=== PATIENT | male | born 1960 | race Two or more races ===

== ENCOUNTER 2016-06-02 12:31 | Emergency (ER) | payer OTHER ==
[~2016-06-02] VITALS: Ht 172.7 cm; Wt 118.4 kg
[~2016-06-02 12:31] MED LIST: ASPI-231 PO; ATE50T PO; CHOL400T PO; CLON0.2T PO; CLOP75TA28 PO; FURO40TA4 PO; INSUINJ37 SUBCUT; LEVO50TA7 PO; LIRA18IN2 SUBCUT; OXYC10TA44 PO; POT20T PO
[2016-06-02] MEDS ORDERED: cloNIDine HCL 0.1 MG TAB ONE (23:13)
[2016-06-02] MEDS ORDERED: cloNIDine HCL 0.1 MG TAB PO ONE (23:30)
[2016-06-03] MEDS ORDERED: PROMETHAZINE HCL 25 MG/ML 1ML IM ONE (01:45)
[2016-06-03] MEDS ORDERED: HYDROmorphone HCL 2 MG/ML VL IM ONE ×2 (01:45→06:00)
[2016-06-03 08:34] VITALS: BP 141/96
== END 2016-06-03 10:14 | disposition home or self-care (01) ==
LOC: ER 12:33
DX: M47.896 Other spondylosis, lumbar region (principal); M54.16 Radiculopathy, lumbar region; R15.9 Full incontinence of feces; E66.9 Obesity, unspecified; Z68.39 Body mass index [BMI] 39.0-39.9, adult; F41.9 Anxiety disorder, unspecified; M19.90 Unspecified osteoarthritis, unspecified site; K21.9 Gastro-esophageal reflux disease without esophagitis; E07.9 Disorder of thyroid, unspecified; I13.0 Hypertensive heart and chronic kidney disease with heart failure and stage 1 through stage 4 chronic kidney disease, or unspecified chronic kidney disease; N18.9 Chronic kidney disease, unspecified; I50.9 Heart failure, unspecified; E11.22 Type 2 diabetes mellitus with diabetic chronic kidney disease; Z79.899 Other long term (current) drug therapy; Z79.4 Long term (current) use of insulin; Z91.013 Allergy to seafood
CPT/HCPCS: 96372; 99284; J1170; J2550

== ENCOUNTER 2016-06-24 12:05 | Emergency (ER) | payer OTHER ==
[~2016-06-24] VITALS: Ht 172.7 cm; Wt 118.8 kg
[2016-06-24] MEDS ORDERED: PROMETHAZINE HCL 25 MG/ML 1ML IM ONE (15:30)
[2016-06-24] MEDS ORDERED: HYDROmorphone HCL 2 MG/ML VL IM ONE (15:30)
[2016-06-24 16:10] VITALS: BP 148/84
== END 2016-06-24 16:29 | disposition home or self-care (01) ==
LOC: ER 12:12
DX: G89.29 Other chronic pain (principal); M25.552 Pain in left hip; M79.1 Myalgia; M54.5 Low back pain; I13.0 Hypertensive heart and chronic kidney disease with heart failure and stage 1 through stage 4 chronic kidney disease, or unspecified chronic kidney disease; E11.22 Type 2 diabetes mellitus with diabetic chronic kidney disease; N18.9 Chronic kidney disease, unspecified; I50.9 Heart failure, unspecified; K21.9 Gastro-esophageal reflux disease without esophagitis; Z87.11 Personal history of peptic ulcer disease; M19.90 Unspecified osteoarthritis, unspecified site; E07.9 Disorder of thyroid, unspecified; Z79.82 Long term (current) use of aspirin; Z79.4 Long term (current) use of insulin; Z79.899 Other long term (current) drug therapy; Z88.6 Allergy status to analgesic agent; Z91.013 Allergy to seafood; Z91.09 Other allergy status, other than to drugs and biological substances
CPT/HCPCS: 73502; 96372; 99284; J1170; J2550

== ENCOUNTER 2016-07-15 15:18 | Emergency (ER) | payer OTHER ==
[~2016-07-15] VITALS: Ht 172.7 cm; Wt 118.8 kg
[2016-07-16 06:20] VITALS: BP 168/84
[2016-07-16] MEDS ORDERED: PROMETHAZINE HCL 25 MG/ML 1ML IM ONE (06:45)
[2016-07-16] MEDS ORDERED: HYDROmorphone HCL 2 MG/ML VL IM ONE (06:45)
== END 2016-07-16 07:21 | disposition home or self-care (01) ==
LOC: ER 15:23
DX: Z76.0 Encounter for issue of repeat prescription (principal); M54.9 Dorsalgia, unspecified; M25.552 Pain in left hip; M19.90 Unspecified osteoarthritis, unspecified site; K21.9 Gastro-esophageal reflux disease without esophagitis; E11.22 Type 2 diabetes mellitus with diabetic chronic kidney disease; I13.0 Hypertensive heart and chronic kidney disease with heart failure and stage 1 through stage 4 chronic kidney disease, or unspecified chronic kidney disease; N18.9 Chronic kidney disease, unspecified; I50.9 Heart failure, unspecified; Z87.11 Personal history of peptic ulcer disease; G89.4 Chronic pain syndrome; Z79.4 Long term (current) use of insulin; Z79.82 Long term (current) use of aspirin; Z79.899 Other long term (current) drug therapy; Z88.6 Allergy status to analgesic agent; Z91.013 Allergy to seafood
CPT/HCPCS: 96372; 99284; J1170; J2550

== ENCOUNTER 2016-11-18 13:24 | Emergency (ER) | payer OTHER ==
[~2016-11-18] VITALS: Ht 172.7 cm; Wt 114.8 kg
[2016-11-18 13:41] VITALS: BP 205/96
[2016-11-18 14:09] LABS: Basophils # (auto) 0 uL; Basophils % (auto) 0.3 % (0.0-2.0); CONDITION Y; Eosinophils # (auto) 0.3 uL; Eosinophils % (auto) 2.8 % (0.0-7.0); Hematocrit 45.8 % (41.0-53.0); Hemoglobin 15.1 g/dL (13.5-17.5); Lymphocytes # (auto) 1.6 uL; Mean Corpuscular Hemoglobin 28.5 pg (28.0-32.0); Mean Corpuscular Volume 86.5 fL (80.0-100.0); Mean Platelet Volume 8.1 fL (7.4-10.4); Monocytes # (auto) 0.4 uL; Monocytes % (auto) 4.4 % (0.0-12.0); Neutrophils # (auto) 7.2 uL; Neutrophils % (auto) 75.5 % (37.0-80.0); Platelet Count (auto) 291 10^3/uL (140-450); Red Cell Distribution Width 15.3 % (11.6-16.0); White Blood Cell 9.5 10^3/uL (4.4-10.8)
[2016-11-18 14:43] LABS: Albumin 3.1 g/dL (3.4-5.0); BUN/Creatinine Ratio 9.5; Bilirubin, Total 0.3 mg/dL (0.2-1.0); Calcium 8.4 mg/dL (8.5-10.1); Potassium 4.9 mmol/L (3.5-5.1); Total Protein 7.2 g/dL (6.4-8.2)
== END 2016-11-18 16:57 | disposition left against medical advice (07) ==
LOC: ER 13:29
DX: M54.9 Dorsalgia, unspecified (principal); M25.552 Pain in left hip; Z53.21 Procedure and treatment not carried out due to patient leaving prior to being seen by health care provider
CPT/HCPCS: 36415; 80053; 85025

== ENCOUNTER 2016-11-21 15:49 | Emergency (ER) | payer OTHER ==
[~2016-11-21] VITALS: Ht 172.7 cm; Wt 114.8 kg
[2016-11-21] MEDS ORDERED: cloNIDine HCL 0.1 MG TAB ONE (16:17)
[2016-11-21] MEDS ORDERED: cloNIDine HCL 0.1 MG TAB PO ONE (16:30)
[2016-11-21 17:41] VITALS: BP 187/100
[2016-11-21] MEDS ORDERED: PROMETHAZINE HCL 25 MG/ML 1ML IM ONE (21:00)
[2016-11-21] MEDS ORDERED: HYDROmorphone HCL 2 MG/ML VL IM ONE (21:00)
== END 2016-11-21 21:39 | disposition home or self-care (01) ==
LOC: ER 15:49
DX: G89.29 Other chronic pain (principal); M54.5 Low back pain; M25.552 Pain in left hip; I13.0 Hypertensive heart and chronic kidney disease with heart failure and stage 1 through stage 4 chronic kidney disease, or unspecified chronic kidney disease; I50.9 Heart failure, unspecified; N18.9 Chronic kidney disease, unspecified; M19.90 Unspecified osteoarthritis, unspecified site; E11.22 Type 2 diabetes mellitus with diabetic chronic kidney disease; K21.9 Gastro-esophageal reflux disease without esophagitis; Z79.4 Long term (current) use of insulin; Z91.013 Allergy to seafood; Z88.6 Allergy status to analgesic agent
CPT/HCPCS: 96372; 99284; J1170; J2550

== ENCOUNTER 2016-12-05 16:13 | Emergency (ER) | payer OTHER ==
[~2016-12-05] VITALS: Ht 172.7 cm; Wt 114.8 kg
[2016-12-05] MEDS ORDERED: PROMETHAZINE HCL 25 MG/ML 1ML IV ONE ×2 (19:45→22:15)
[2016-12-05] MEDS ORDERED: MORPHINE SULFATE 4 MG/ML SYRG IV ONE (19:45)
[2016-12-05] MEDS ORDERED: SODIUM CHLORIDE 0.9% 500 ML IV ONE (20:27)
[2016-12-05 20:52] LABS: Basophils # (auto) 0 uL; Basophils % (auto) 0.2 % (0.0-2.0); CONDITION Y; Eosinophils # (auto) 0.4 uL; Eosinophils % (auto) 4.8 % (0.0-7.0); Hematocrit 42.8 % (41.0-53.0); Hemoglobin 14.2 g/dL (13.5-17.5); Lymphocytes # (auto) 1.8 uL; Lymphocytes % (auto) 20.9 % (10.0-50.0); Mean Corpuscular Hgb Conc. 33.2 g/dL (32.0-36.0); Mean Corpuscular Volume 87.3 fL (80.0-100.0); Mean Platelet Volume 7.8 fL (7.4-10.4); Monocytes # (auto) 0.5 uL; Monocytes % (auto) 6.3 % (0.0-12.0); Neutrophils # (auto) 5.7 uL; Neutrophils % (auto) 67.8 % (37.0-80.0); Platelet Count (auto) 275 10^3/uL (140-450); Red Cell Distribution Width 16.2 % (11.6-16.0); White Blood Cell 8.4 10^3/uL (4.4-10.8)
[2016-12-05 21:05] LABS: INR 1.01 (0.9-1.15); Partial Thromboplastin Time 26.8 sec (22.64-33.71)
[2016-12-05 21:08] LABS: Albumin 2.8 g/dL (3.4-5.0); BUN/Creatinine Ratio 13.4; Calcium 8.1 mg/dL (8.5-10.1); Potassium 4.6 mmol/L (3.5-5.1)
[2016-12-05 21:11] LABS: Bilirubin, Total 0.2 mg/dL (0.2-1.0); Total Protein 7.1 g/dL (6.4-8.2)
[2016-12-05 21:57] VITALS: BP 134/85
[2016-12-05 22:00] LABS: Urine Bilirubin Negative (Negative); Urine Blood TRACE /uL (Negative); Urine Color Yellow (Yellow); Urine Ketone Negative (Negative); Urine Nitrite Negative (Negative); Urine RBC 2 /hpf (0 - 3); Urine Squamous Epithelial Cell FEW /hpf (<5); Urine Urobilinogen Normal (Negative)
[2016-12-05 22:07] LABS: Urine Glucose 3+ mg/dL (Normal)
[2016-12-05] MEDS ORDERED: HYDROmorphone HCL 2 MG/ML VL IV ONE (22:15)
[2016-12-05] MEDS ORDERED: CLINDAMYCIN 600MG IV 50 ML IV ONE (22:15)
== END 2016-12-05 23:10 | disposition left against medical advice (07) ==
LOC: ER 16:14
DX: M25.552 Pain in left hip (principal); G89.4 Chronic pain syndrome; I50.9 Heart failure, unspecified; I13.0 Hypertensive heart and chronic kidney disease with heart failure and stage 1 through stage 4 chronic kidney disease, or unspecified chronic kidney disease; N18.4 Chronic kidney disease, stage 4 (severe); Z87.11 Personal history of peptic ulcer disease; K21.9 Gastro-esophageal reflux disease without esophagitis; E07.9 Disorder of thyroid, unspecified; M19.90 Unspecified osteoarthritis, unspecified site; Z79.4 Long term (current) use of insulin; Z79.82 Long term (current) use of aspirin; Z91.013 Allergy to seafood; Z91.09 Other allergy status, other than to drugs and biological substances; Z79.899 Other long term (current) drug therapy
CPT/HCPCS: 36415; 73502; 73700; 80053; 81001; 82962; 83735; 85025; 85610; 85652; 85730; 94761; 96361; 96365; 96375; 96376; 99285; J1170; J2270; J2550; J3490; J7040

== ENCOUNTER 2017-07-31 22:06 | Emergency (ER) | payer BC, OTHER ==
[~2017-07-31] VITALS: Ht 172.7 cm; Wt 115.2 kg
[2017-07-31] MEDS ORDERED: cloNIDine HCL 0.1 MG TAB ONE (22:24)
[2017-07-31] MEDS ORDERED: cloNIDine HCL 0.1 MG TAB PO ONE (22:30)
[2017-07-31 23:06] LABS: Basophils # (auto) 0.1 uL; Basophils % (auto) 1.3 % (0.0-2.0); Eosinophils # (auto) 0.2 uL; Eosinophils % (auto) 1.9 % (0.0-7.0); Hematocrit 42.2 % (41.0-53.0); Hemoglobin 14.2 g/dL (13.5-17.5); Lymphocytes # (auto) 1.4 uL; Lymphocytes % (auto) 14.5 % (10.0-50.0); Mean Corpuscular Hemoglobin 29.6 pg (28.0-32.0); Mean Corpuscular Hgb Conc. 33.6 g/dL (32.0-36.0); Mean Corpuscular Volume 88.2 fL (80.0-100.0); Monocytes # (auto) 0.5 uL; Monocytes % (auto) 5.4 % (0.0-12.0); Neutrophils # (auto) 7.3 uL; Neutrophils % (auto) 76.9 % (37.0-80.0); Platelet Count (auto) 238 10^3/uL (140-450); Red Blood Cells 4.79 10^6/uL (4.5-5.90); Red Cell Distribution Width 13.7 % (11.8-14.3); White Blood Cell 9.5 10^3/uL (4.4-10.8)
[2017-07-31 23:18] LABS: Albumin 3.4 g/dL (3.4-5.0); BUN/Creatinine Ratio 14.3; Calcium 8.9 mg/dL (8.5-10.1); Magnesium 2.1 mg/dL (1.6-2.6); Potassium 4.1 mmol/L (3.5-5.1)
[2017-07-31 23:21] LABS: INR 1.01 (0.9-1.15); Partial Thromboplastin Time 27.6 sec (22.64-33.71)
[2017-07-31 23:23] LABS: Bilirubin, Total 0.2 mg/dL (0.2-1.0)
[2017-07-31 23:28] LABS: Urine WBC None Seen /hpf (0 - 3)
[2017-07-31 23:40] LABS: Urine Bacteria FEW /hpf (None Seen); Urine Blood 1+ /uL (Negative); Urine Hyaline Cast FEW /lpf (0 - 2); Urine Mucus FEW (None Seen)
[2017-08-01] MEDS ORDERED: MORPHINE SULFATE 4 MG/ML SYR/VIAL ONE (00:17)
[2017-08-01] MEDS ORDERED: PROMETHAZINE HCL 25 MG/ML 1ML ONE (00:19)
[2017-08-01] MEDS ORDERED: MORPHINE SULFATE 4 MG/ML SYR/VIAL IV ONE (00:45)
[2017-08-01] MEDS ORDERED: SODIUM CHLORIDE 0.9% 1,000 ML IV ONE (00:45)
[2017-08-01] MEDS ORDERED: PROMETHAZINE HCL 25 MG/ML 1ML IV ONE (00:45)
[2017-08-01 02:10] VITALS: BP 162/95
== END 2017-08-01 02:36 | disposition home or self-care (01) ==
LOC: EDBD 22:06 → ER 22:10
DX: K29.70 Gastritis, unspecified, without bleeding (principal); K21.9 Gastro-esophageal reflux disease without esophagitis; I11.0 Hypertensive heart disease with heart failure; I50.9 Heart failure, unspecified; E11.9 Type 2 diabetes mellitus without complications; Z87.11 Personal history of peptic ulcer disease; Z79.4 Long term (current) use of insulin; Z79.82 Long term (current) use of aspirin; Z91.013 Allergy to seafood
CPT/HCPCS: 36415; 71045; 74176; 80053; 81001; 82150; 82962; 83690; 83735; 83880; 84484; 85025; 85610; 85730; 87040; 93005; 96361; 96374; 96375; 99285; J2270; J2550; J7030

== ENCOUNTER 2018-02-23 16:50 | Observation (INO) | payer OTHER ==
[~2018-02-23] VITALS: Ht 172.7 cm; Wt 108.9 kg
[2018-02-23 18:56] LABS: Basophils # (auto) 0 uL; Basophils % (auto) 0.4 % (0.0-2.0); Eosinophils # (auto) 0.1 uL; Hematocrit 35.8 % (41.0-53.0); Hemoglobin 12.1 g/dL (13.5-17.5); Lymphocytes # (auto) 0.9 uL; Lymphocytes % (auto) 10.8 % (10.0-50.0); Mean Corpuscular Hemoglobin 29.9 pg (28.0-32.0); Mean Corpuscular Hgb Conc. 33.7 g/dL (32.0-36.0); Mean Corpuscular Volume 88.6 fL (80.0-100.0); Monocytes # (auto) 0.5 uL; Monocytes % (auto) 5.2 % (0.0-12.0); Neutrophils # (auto) 7.3 uL; Neutrophils % (auto) 82.6 % (37.0-80.0); Nucleated Red Blood Cells % 0.1 %; Platelet Count (auto) 227 10^3/uL (140-450); Red Blood Cells 4.03 10^6/uL (4.5-5.90); Red Cell Distribution Width 15.2 % (11.8-14.3); White Blood Cell 8.8 10^3/uL (4.4-10.8)
[2018-02-23] MEDS ORDERED: PROMETHAZINE HCL 25 MG/ML 1ML IV ONE (19:00)
[2018-02-23] MEDS ORDERED: MORPHINE SULFATE 4 MG/ML SYR/VIAL IV ONE (19:00)
[2018-02-23] MEDS ORDERED: cloNIDine HCL 0.1 MG TAB PO ONE (19:00)
[2018-02-23 19:16] LABS: Potassium 4.7 mmol/L (3.5-5.1)
[2018-02-23 19:20] LABS: Albumin 3.2 g/dL (3.4-5.0); BUN/Creatinine Ratio 12.4; Calcium 8.1 mg/dL (8.5-10.1); Magnesium 2.4 mg/dL (1.6-2.6)
[2018-02-23 19:25] LABS: Bilirubin, Total 0.3 mg/dL (0.2-1.0); Total Protein 8.1 g/dL (6.4-8.2)
[2018-02-23] MEDS ORDERED: PROM25TA5 PO (21:27)
[2018-02-23] MEDS ORDERED: CLOP75TA41 (21:27)
[2018-02-23] MEDS ORDERED: MORP1TAB12 (21:27)
[2018-02-23] MEDS ORDERED: METO25TA62 (21:27)
[2018-02-23] MEDS ORDERED: INSUINJ37 (21:27)
[2018-02-23 22:01] VITALS: BP 100/85
[2018-02-23 22:44] LABS: Urine Amorphous Crystal FEW /hpf (None Seen); Urine Bacteria FEW /hpf (None Seen); Urine Blood 2+ /uL (Negative); Urine Mucus FEW (None Seen); Urine Specific Gravity 1.009 (1.001-1.035); Urine WBC 1 /hpf (0 - 3)
== END 2018-02-23 23:30 | disposition home or self-care (01) | DRG 313 ==
LOC: ER 16:50 → EDBD 16:50 → OVERFLOW 16:51 → ER 23:30
PROVIDERS: ADMIT Emergency Medicine; ATTEND Emergency Medicine
DX: R07.89 Other chest pain (principal); N18.6 End stage renal disease; I13.2 Hypertensive heart and chronic kidney disease with heart failure and with stage 5 chronic kidney disease, or end stage renal disease; K80.20 Calculus of gallbladder without cholecystitis without obstruction; I50.9 Heart failure, unspecified; F41.9 Anxiety disorder, unspecified; E11.22 Type 2 diabetes mellitus with diabetic chronic kidney disease; F32.9 Major depressive disorder, single episode, unspecified; K27.9 Peptic ulcer, site unspecified, unspecified as acute or chronic, without hemorrhage or perforation; D64.9 Anemia, unspecified; M19.90 Unspecified osteoarthritis, unspecified site; K21.9 Gastro-esophageal reflux disease without esophagitis; G89.4 Chronic pain syndrome; E66.01 Morbid (severe) obesity due to excess calories; E07.9 Disorder of thyroid, unspecified; Z88.9 Allergy status to unspecified drugs, medicaments and biological substances; Z88.6 Allergy status to analgesic agent; Z91.013 Allergy to seafood
CPT/HCPCS: 36415; 74176; 80053; 81001; 83735; 84484; 85025; 93005; 96374; 96375; 99285; G0378; J2270; J2550

== ENCOUNTER 2019-08-18 17:21 | Inpatient (IN) | payer MEDICARE, OTHER ==
[~2019-08-18] VITALS: Ht 172.7 cm; Wt 101.6 kg
[~2019-08-18 17:21] MED LIST changes: -ATE50T PO; -CHOL400T PO; -CLON0.2T PO; +DOCU-94 PO; -FURO40TA4 PO; +INSLANTI SC; +INSREGI SC; -INSUINJ37 SUBCUT; -LIRA18IN2 SUBCUT; +MAGN1CAP2 PO; +MORP1TAB12 PO; -OXYC10TA44 PO; +PERCOT GT; -POT20T PO
[2019-08-18 18:48] LABS: Basophils # (auto) 0 10 ^3/uL (0-0.2); Basophils % (auto) 0.5 % (0.0-2.0); Eosinophils # (auto) 0.2 10 ^3/uL (0-0.8); Eosinophils % (auto) 2.8 % (0.0-7.0); Hematocrit 33.5 % (41.0-53.0); Hemoglobin 11.3 g/dL (13.5-17.5); Lymphocytes # (auto) 0.9 10 ^3/uL (0.4-5.4); Lymphocytes % (auto) 11.2 % (10.0-50.0); Mean Corpuscular Hemoglobin 31.2 pg (28.0-32.0); Mean Corpuscular Hgb Conc. 33.8 g/dL (32.0-36.0); Mean Corpuscular Volume 92.4 fL (80.0-100.0); Monocytes # (auto) 0.6 10 ^3/uL (0-1.3); Monocytes % (auto) 7.3 % (0.0-12.0); Neutrophils # (auto) 6.5 10 ^3/uL (1.6-8.6); Neutrophils % (auto) 78.2 % (37.0-80.0); Platelet Count (auto) 230 10^3/uL (140-450); Red Blood Cells 3.63 10^6/uL (4.5-5.90); Red Cell Distribution Width 16.4 % (11.8-14.3); White Blood Cell 8.3 10^3/uL (4.4-10.8)
[2019-08-18 18:58] LABS: Albumin 3.8 g/dL (3.4-5.0); Calcium 9.2 mg/dL (8.5-10.1); Magnesium 2.8 mg/dL (1.6-2.6)
[2019-08-18 19:06] LABS: BUN/Creatinine Ratio 6.3; Bilirubin, Total 0.4 mg/dL (0.2-1.0); INR 1.11 (0.9-1.15); Partial Thromboplastin Time 31.5 sec (23.64-32.05); Total Protein 7.9 g/dL (6.4-8.2)
[2019-08-18] MEDS ORDERED: ONDANSETRON HCL 4 MG/2 ML VIAL IV ONE (19:30)
[2019-08-18] MEDS ORDERED: MORPHINE SULF INJ 2 MG/ML SYRINGE 1ML IV ONE (19:30)
[2019-08-18] MEDS ORDERED: PROMETHAZINE HCL 25 MG/ML 1ML IV ONE (19:45)
[2019-08-18] MEDS ORDERED: NITROGLYCERIN 0.4 MG SL TAB SL PRN (22:30)
[2019-08-18] MEDS ORDERED: HYDROcodone-ACET 5/325MG TAB PO PRN (22:30)
[2019-08-18] MEDS ORDERED: DEXTROSE (50%) 50ML SYRG IV PRN (22:30)
[2019-08-18] MEDS ORDERED: ACETAMINOPHEN 325 MG TAB PO PRN (22:30)
[2019-08-18] MEDS ORDERED: OXYCODONE W/ ACETAMINOPHEN 5/325MG TABLET GT PRN (22:30)
[2019-08-18] MEDS ORDERED: ONDANSETRON HCL 4 MG/2 ML VIAL IV PRN (22:30)
[2019-08-18] MEDS ORDERED: MORPHINE SULF INJ 2 MG/ML SYRINGE 1ML IV PRN (22:30)
[2019-08-18] MEDS ORDERED: DOCUSATE SOD 100 MG CAP PO PRN (22:30)
[2019-08-18] MEDS: MORPHINE SULFATE 4 MG/ML SYR/VIAL IV PRN (23:02)
[2019-08-19] VITALS (8 sets, daily range): BP systolic 122–156; BP diastolic 64–91
[2019-08-19] MEDS: InsuLIN REG 1unit/0.01ml Soln (100units/ml) SC SCH ×7 (00:01→23:43)
[2019-08-19] MEDS: ACCU-CHEK COMFORT CURVE STRIP VI SCH ×7 (03:55→23:44)
[2019-08-19] MEDS: MORPHINE SULFATE 4 MG/ML SYR/VIAL IV PRN ×4 (04:00→16:43)
[2019-08-19 05:23] LABS: Calcium 9.3 mg/dL (8.5-10.1); Potassium 3.8 mmol/L (3.5-5.1)
[2019-08-19 05:28] LABS: BUN/Creatinine Ratio 6.2
[2019-08-19] MEDS: LEVOTHYROXINE SODIUM 50 MCG TAB PO SCH (06:19)
[2019-08-19] MEDS: PANTOPRAZOLE 40 MG TAB PO SCH (09:20)
[2019-08-19] MEDS: DOCUSATE SOD 100 MG CAP PO SCH (09:20)
[2019-08-19] MEDS: ASPirin-EC 81 mg tab PO SCH (09:20)
[2019-08-19] MEDS: CLOPIDOGREL BISULFATE 75 MG TAB PO SCH (09:21)
[2019-08-19] MEDS: MORPHINE SULF 15mg ER tab PO SCH ×2 (09:21→22:00)
[2019-08-19] MEDS ORDERED: FUROSEMIDE 40 MG/4 ML VIAL IV SCH (10:00)
[2019-08-19] MEDS ORDERED: INSULIN LANTUS (GLARGINE) 1 /0.01ml (100units/ml) SC SCH (10:00)
[2019-08-19] MEDS: FUROSEMIDE 100 MG/10ML VIAL IV SCH (11:16)
[2019-08-19] MEDS ORDERED: PROMETHAZINE HCL 25 MG/ML 1ML IV PRN (13:15)
[2019-08-19] MEDS ORDERED: MAGN1CAP2 PO (15:46)
[2019-08-19] MEDS ORDERED: INSLANTI SC (15:46)
[2019-08-19] MEDS ORDERED: LEVO150T10 PO (15:49)
[2019-08-19] MEDS ORDERED: HYDR-4296 PO (15:53)
[2019-08-19] MEDS ORDERED: CARV25TA55 PO (15:54)
[2019-08-19] MEDS ORDERED: FURO40TA4 PO (15:55)
[2019-08-19] MEDS ORDERED: BUSP7.5T4 PO (15:56)
[2019-08-19] MEDS ORDERED: AMLO5TAB15 PO (15:56)
[2019-08-19] MEDS ORDERED: ATOR10TA52 PO (15:57)
[2019-08-19] MEDS ORDERED: FEBU40TA PO (15:57)
[2019-08-19] MEDS ORDERED: INSU100I49 SC (16:02)
[2019-08-19] MEDS: ATORVASTATIN 20 MG TAB PO SCH (18:17)
[2019-08-19] MEDS ORDERED: BUME2TAB5 PO (20:37)
[2019-08-19] MEDS ORDERED: TEMAZEPAM 15 MG CAP PO ONE (20:45)
[2019-08-19] MEDS: MORPHINE SULF INJ 2 MG/ML SYRINGE 1ML IV PRN (20:51)
[2019-08-19] MEDS: INSULIN LANTUS (GLARGINE) 1 /0.01ml (100units/ml) SC SCH (21:32)
[2019-08-19] MEDS: ALBUTEROL SULF 2.5 MG/0.5ML(0.5%) NEB SOLN NEB PRN (22:04)
[2019-08-19] MEDS: IPRATROPIUM BROM 0.5 MG/2.5ML INH SOL NEB PRN (22:05)
[2019-08-19] MEDS ORDERED: FUROSEMIDE 20 MG/2 ML VIAL IV ONE (23:00)
[2019-08-20] MEDS: MORPHINE SULF INJ 2 MG/ML SYRINGE 1ML IV PRN (03:16)
[2019-08-20] MEDS: InsuLIN REG 1unit/0.01ml Soln (100units/ml) SC SCH ×6 (03:46→23:30)
[2019-08-20] MEDS: ACCU-CHEK COMFORT CURVE STRIP VI SCH ×6 (03:47→23:31)
[2019-08-20 05:00] VITALS: BP 135/85
[2019-08-20] MEDS: LEVOTHYROXINE SODIUM 50 MCG TAB PO SCH (06:01)
[2019-08-20] MEDS: INSULIN LANTUS (GLARGINE) 1 /0.01ml (100units/ml) SC SCH ×2 (06:01→21:25)
[2019-08-20 06:27] LABS: Basophils # (auto) 0 10 ^3/uL (0-0.2); Basophils % (auto) 0.6 % (0.0-2.0); Eosinophils # (auto) 0.2 10 ^3/uL (0-0.8); Eosinophils % (auto) 2.5 % (0.0-7.0); Hematocrit 35.4 % (41.0-53.0); Hemoglobin 11.9 g/dL (13.5-17.5); Lymphocytes # (auto) 1.1 10 ^3/uL (0.4-5.4); Lymphocytes % (auto) 13.4 % (10.0-50.0); Mean Corpuscular Hgb Conc. 33.5 g/dL (32.0-36.0); Mean Corpuscular Volume 92.5 fL (80.0-100.0); Monocytes # (auto) 0.6 10 ^3/uL (0-1.3); Monocytes % (auto) 6.9 % (0.0-12.0); Neutrophils # (auto) 6.3 10 ^3/uL (1.6-8.6); Neutrophils % (auto) 76.6 % (37.0-80.0); Platelet Count (auto) 219 10^3/uL (140-450); Red Blood Cells 3.82 10^6/uL (4.5-5.90); Red Cell Distribution Width 15.7 % (11.8-14.3); White Blood Cell 8.2 10^3/uL (4.4-10.8)
[2019-08-20 06:52] LABS: Potassium 4.3 mmol/L (3.5-5.1)
[2019-08-20 07:01] LABS: BUN/Creatinine Ratio 7.1; Calcium 8.9 mg/dL (8.5-10.1)
[2019-08-20] MEDS ORDERED: SODIUM CHL 0.9% 1000 ML BAG XX ONE (08:45)
[2019-08-20 09:00] VITALS: BP 169/93
[2019-08-20] MEDS: MORPHINE SULF 15mg ER tab PO SCH ×2 (10:00→22:00)
[2019-08-20] MEDS: FUROSEMIDE 100 MG/10ML VIAL IV SCH (10:00)
[2019-08-20 13:08] VITALS: BP 151/79
[2019-08-20 17:00] VITALS: BP 156/87
[2019-08-20] MEDS: DOCUSATE SOD 100 MG CAP PO SCH (18:08)
[2019-08-20] MEDS: CLOPIDOGREL BISULFATE 75 MG TAB PO SCH (18:09)
[2019-08-20] MEDS: ASPirin-EC 81 mg tab PO SCH (18:09)
[2019-08-20] MEDS: PANTOPRAZOLE 40 MG TAB PO SCH (18:10)
[2019-08-20] MEDS: ATORVASTATIN 20 MG TAB PO SCH (18:15)
[2019-08-20] MEDS: IPRATROPIUM BROM 0.5 MG/2.5ML INH SOL NEB PRN ×2 (19:18→22:35)
[2019-08-20] MEDS: ALBUTEROL SULF 2.5 MG/0.5ML(0.5%) NEB SOLN NEB PRN ×2 (19:18→22:35)
[2019-08-21] MEDS: MORPHINE SULF INJ 2 MG/ML SYRINGE 1ML IV PRN ×3 (00:32→20:08)
[2019-08-21] MEDS: TEMAZEPAM 15 MG CAP PO PRN ×2 (01:17→22:31)
[2019-08-21] MEDS: InsuLIN REG 1unit/0.01ml Soln (100units/ml) SC SCH ×5 (03:53→20:14)
[2019-08-21] MEDS: ACCU-CHEK COMFORT CURVE STRIP VI SCH ×5 (03:54→20:05)
[2019-08-21 04:47] VITALS: BP 152/76
[2019-08-21] MEDS: LEVOTHYROXINE SODIUM 50 MCG TAB PO SCH (06:08)
[2019-08-21] MEDS: INSULIN LANTUS (GLARGINE) 1 /0.01ml (100units/ml) SC SCH ×2 (06:08→22:30)
[2019-08-21] MEDS ORDERED: SODIUM CHL 0.9% 1000 ML BAG XX ONE (07:00)
[2019-08-21 07:36] LABS: Basophils # (auto) 0.1 10 ^3/uL (0-0.2); Basophils % (auto) 1.2 % (0.0-2.0); Eosinophils # (auto) 0.3 10 ^3/uL (0-0.8); Eosinophils % (auto) 4.2 % (0.0-7.0); Hematocrit 32.5 % (41.0-53.0); Lymphocytes # (auto) 1.1 10 ^3/uL (0.4-5.4); Mean Corpuscular Hemoglobin 31.2 pg (28.0-32.0); Mean Corpuscular Hgb Conc. 33.8 g/dL (32.0-36.0); Mean Corpuscular Volume 92.1 fL (80.0-100.0); Monocytes # (auto) 0.5 10 ^3/uL (0-1.3); Monocytes % (auto) 8.1 % (0.0-12.0); Neutrophils # (auto) 4.5 10 ^3/uL (1.6-8.6); Neutrophils % (auto) 69.5 % (37.0-80.0); Platelet Count (auto) 183 10^3/uL (140-450); Red Blood Cells 3.53 10^6/uL (4.5-5.90); Red Cell Distribution Width 16.1 % (11.8-14.3); White Blood Cell 6.4 10^3/uL (4.4-10.8)
[2019-08-21 07:53] LABS: Calcium 8.2 mg/dL (8.5-10.1); Potassium 3.5 mmol/L (3.5-5.1)
[2019-08-21 07:55] LABS: BUN/Creatinine Ratio 6.1
[2019-08-21 09:08] VITALS: BP 158/86
[2019-08-21] MEDS: MORPHINE SULF 15mg ER tab PO SCH ×2 (10:00→22:00)
[2019-08-21] MEDS: ASPirin-EC 81 mg tab PO SCH (10:01)
[2019-08-21] MEDS: DOCUSATE SOD 100 MG CAP PO SCH (10:01)
[2019-08-21] MEDS: CLOPIDOGREL BISULFATE 75 MG TAB PO SCH (10:02)
[2019-08-21] MEDS: FUROSEMIDE 100 MG/10ML VIAL IV SCH (10:02)
[2019-08-21] MEDS: PANTOPRAZOLE 40 MG TAB PO SCH (10:02)
[2019-08-21] MEDS: IPRATROPIUM BROM 0.5 MG/2.5ML INH SOL NEB PRN ×2 (11:45→19:01)
[2019-08-21] MEDS: ALBUTEROL SULF 2.5 MG/0.5ML(0.5%) NEB SOLN NEB PRN ×2 (11:45→19:01)
[2019-08-21 13:00] VITALS: BP 154/95
[2019-08-21 17:00] VITALS: BP 156/92
[2019-08-21] MEDS: ATORVASTATIN 20 MG TAB PO SCH (18:19)
[2019-08-21 22:00] VITALS: BP 139/75
[2019-08-22] MEDS: ACCU-CHEK COMFORT CURVE STRIP VI SCH ×5 (00:29→17:30)
[2019-08-22 00:58] VITALS: BP 139/75
[2019-08-22] MEDS: MORPHINE SULF INJ 2 MG/ML SYRINGE 1ML IV PRN ×3 (01:18→09:45)
[2019-08-22] MEDS: InsuLIN REG 1unit/0.01ml Soln (100units/ml) SC SCH ×5 (04:00→17:31)
[2019-08-22 05:44] VITALS: BP 127/71
[2019-08-22] MEDS: INSULIN LANTUS (GLARGINE) 1 /0.01ml (100units/ml) SC SCH (06:44)
[2019-08-22] MEDS: LEVOTHYROXINE SODIUM 50 MCG TAB PO SCH (06:47)
[2019-08-22 09:00] VITALS: BP 128/67
[2019-08-22] MEDS: MORPHINE SULF 15mg ER tab PO SCH (09:42)
[2019-08-22] MEDS: FUROSEMIDE 100 MG/10ML VIAL IV SCH (09:44)
[2019-08-22] MEDS: ASPirin-EC 81 mg tab PO SCH (09:45)
[2019-08-22] MEDS: DOCUSATE SOD 100 MG CAP PO SCH (09:45)
[2019-08-22] MEDS: PANTOPRAZOLE 40 MG TAB PO SCH (09:45)
[2019-08-22] MEDS: CLOPIDOGREL BISULFATE 75 MG TAB PO SCH (09:45)
[2019-08-22] MEDS ORDERED: ENOXAPARIN SOD 30 MG/0.3 ML SYRINGE SC SCH ×2 (10:00)
[2019-08-22 13:00] VITALS: BP 150/97
[2019-08-22 16:41] VITALS: BP 128/67
[2019-08-22 16:57] VITALS: BP 181/90
== END 2019-08-22 18:00 | disposition home or self-care (01) | DRG 280 ==
LOC: EDBD 17:21 → ER 17:21 → TELE 17:22 → TELE-WESTW 23:09
PROVIDERS: ADMIT Hospitalist; ATTEND Internal Medicine
PROC: 5A1D70Z Performance of Urinary Filtration, Intermittent, Less than 6 Hours Per Day (ICD-10-PCS; principal; 2019-08-21)
PROC: 5A1D70Z Performance of Urinary Filtration, Intermittent, Less than 6 Hours Per Day (ICD-10-PCS; 2019-08-22)
DX: I13.2 Hypertensive heart and chronic kidney disease with heart failure and with stage 5 chronic kidney disease, or end stage renal disease (principal); I21.A1 Myocardial infarction type 2; I50.43 Acute on chronic combined systolic (congestive) and diastolic (congestive) heart failure; N18.6 End stage renal disease; J96.00 Acute respiratory failure, unspecified whether with hypoxia or hypercapnia; E03.9 Hypothyroidism, unspecified; K21.9 Gastro-esophageal reflux disease without esophagitis; E66.9 Obesity, unspecified; E11.21 Type 2 diabetes mellitus with diabetic nephropathy; I25.10 Atherosclerotic heart disease of native coronary artery without angina pectoris; G89.4 Chronic pain syndrome; J44.9 Chronic obstructive pulmonary disease, unspecified; E78.5 Hyperlipidemia, unspecified; E11.65 Type 2 diabetes mellitus with hyperglycemia; F32.9 Major depressive disorder, single episode, unspecified; F41.9 Anxiety disorder, unspecified; D64.9 Anemia, unspecified; M19.90 Unspecified osteoarthritis, unspecified site; D63.8 Anemia in other chronic diseases classified elsewhere; Z99.2 Dependence on renal dialysis; Z88.8 Allergy status to other drugs, medicaments and biological substances; I25.2 Old myocardial infarction; Z91.013 Allergy to seafood; Z68.34 Body mass index [BMI] 34.0-34.9, adult
CPT/HCPCS: 36415; 36600; 71045; 80048; 80053; 80061; 82805; 82962; 83036; 83735; 83880; 84439; 84443; 84484; 85025; 85610; 85730; 87081; 90935; 93005; 93971; 94640; 96374; 96375; G0378; J1642; J1815

== ENCOUNTER → 2019-09-17 | Emergency (ER) | payer MEDICARE, OTHER ==
[~2019-09-17] VITALS: Ht 172.7 cm; Wt 102.1 kg
[~2019-09-17] MED LIST changes: +AMLO5TAB15 PO; +ATOR10TA52 PO; +BUME2TAB5 PO; +BUSP7.5T4 PO; +CARV25TA55 PO; +FEBU40TA PO; +FURO40TA4 PO; +HYDR-4296 PO; -INSREGI SC; +INSU100I49 SC; +LEVO150T10 PO; -LEVO50TA7 PO; -MORP1TAB12 PO; -PERCOT GT
[2019-09-17 19:40] LABS: Basophils # (auto) 0.1 10 ^3/uL (0-0.2); Basophils % (auto) 0.5 % (0.0-2.0); Eosinophils # (auto) 0.3 10 ^3/uL (0-0.8); Eosinophils % (auto) 2.8 % (0.0-7.0); Hematocrit 39.4 % (41.0-53.0); Lymphocytes # (auto) 0.9 10 ^3/uL (0.4-5.4); Lymphocytes % (auto) 8.8 % (10.0-50.0); Mean Corpuscular Hgb Conc. 32.9 g/dL (32.0-36.0); Mean Corpuscular Volume 91.3 fL (80.0-100.0); Monocytes # (auto) 0.5 10 ^3/uL (0-1.3); Monocytes % (auto) 5.3 % (0.0-12.0); Neutrophils # (auto) 8.1 10 ^3/uL (1.6-8.6); Neutrophils % (auto) 82.6 % (37.0-80.0); Platelet Count (auto) 200 10^3/uL (140-450); Red Blood Cells 4.31 10^6/uL (4.5-5.90); Red Cell Distribution Width 15.7 % (11.8-14.3); White Blood Cell 9.8 10^3/uL (4.4-10.8)
[2019-09-17 19:56] LABS: Albumin 3.7 g/dL (3.4-5.0); Calcium 8.8 mg/dL (8.5-10.1); Potassium 4.4 mmol/L (3.5-5.1)
[2019-09-17 19:59] LABS: BUN/Creatinine Ratio 7.3; Bilirubin, Total 0.4 mg/dL (0.2-1.0); Total Protein 7.5 g/dL (6.4-8.2)
[2019-09-17 22:56] VITALS: BP 163/85
== END | disposition home or self-care (01) ==
LOC: EDBD 18:47 → ER 18:47 → EDUNIT# 18:47
DX: K80.20 Calculus of gallbladder without cholecystitis without obstruction (principal); K21.9 Gastro-esophageal reflux disease without esophagitis; I25.2 Old myocardial infarction; I13.2 Hypertensive heart and chronic kidney disease with heart failure and with stage 5 chronic kidney disease, or end stage renal disease; E11.22 Type 2 diabetes mellitus with diabetic chronic kidney disease; N18.6 End stage renal disease; I50.9 Heart failure, unspecified; Z79.82 Long term (current) use of aspirin; Z79.899 Other long term (current) drug therapy; Z79.4 Long term (current) use of insulin; Z79.01 Long term (current) use of anticoagulants; Z88.8 Allergy status to other drugs, medicaments and biological substances
CPT/HCPCS: 36415; 74176; 80053; 83690; 85025

== ENCOUNTER 2020-02-01 16:28 | Inpatient (IN) | payer MEDICARE, OTHER ==
[~2020-02-01] VITALS: Ht 170.2 cm; Wt 100.6 kg
[2020-02-01 17:55] LABS: Basophils # (auto) 0 10 ^3/uL (0-0.2); Basophils % (auto) 0.5 % (0.0-2.0); Eosinophils # (auto) 0.1 10 ^3/uL (0-0.8); Eosinophils % (auto) 2.3 % (0.0-7.0); Hematocrit 35.4 % (41.0-53.0); Hemoglobin 11.6 g/dL (13.5-17.5); Lymphocytes # (auto) 0.5 10 ^3/uL (0.4-5.4); Lymphocytes % (auto) 9.4 % (10.0-50.0); Mean Corpuscular Hemoglobin 31.4 pg (28.0-32.0); Mean Corpuscular Hgb Conc. 32.8 g/dL (32.0-36.0); Mean Corpuscular Volume 95.8 fL (80.0-100.0); Monocytes # (auto) 0.3 10 ^3/uL (0-1.3); Monocytes % (auto) 6.4 % (0.0-12.0); Neutrophils # (auto) 4.5 10 ^3/uL (1.6-8.6); Neutrophils % (auto) 81.4 % (37.0-80.0); Platelet Count (auto) 182 10^3/uL (140-450); Red Cell Distribution Width 17.6 % (11.8-14.3); White Blood Cell 5.5 10^3/uL (4.4-10.8)
[2020-02-01 18:26] LABS: Albumin 3.4 g/dL (3.4-5.0); Calcium 8.2 mg/dL (8.5-10.1); Potassium 4.2 mmol/L (3.5-5.1)
[2020-02-01 18:31] LABS: Bilirubin, Total 0.5 mg/dL (0.2-1.0); Total Protein 7.5 g/dL (6.4-8.2)
[2020-02-01 19:01] LABS: INR 1.08 (0.9-1.15); Partial Thromboplastin Time 26.5 sec (23.0-31.2)
[2020-02-01] MEDS ORDERED: ONDANSETRON HCL 4 MG/2 ML VIAL IV ONE (19:30)
[2020-02-01] MEDS ORDERED: HYDROmorphone HCL 2 MG/ML VL IV ONE (19:30)
--- NOTE | 2020-02-01 19:30 | NUR ---
Opening Shift Note Assumed care of patient. Patient AOx4. Fall and safety precautions in place. Call light within reach and able to use. No S/S of distress/SOB. Patient's personal wheelchair at bedside. Instructed on POC and to call for assist PRN, patient verbalized understanding and in agreement. Will continue to monitor for changes Q1hr and PRN. Addendum: 02/03/20 at 0000 by LIOR AL RN RN wrong date
[2020-02-01] MEDS ORDERED: PROMETHAZINE HCL 25 MG/ML 1ML IV ONE (21:00)
[2020-02-01 22:00] VITALS: BP 124/79
[2020-02-01] MEDS ORDERED: MORPHINE SULF INJ 2 MG/ML SYRINGE 1ML IV PRN (23:00)
[2020-02-01] MEDS ORDERED: ZOLPIDEM TARTRATE 5 MG TAB PO PRN (23:00)
[2020-02-01] MEDS ORDERED: NITROGLYCERIN 0.4 MG SL TAB SL PRN (23:00)
[2020-02-01] MEDS ORDERED: ACETAMINOPHEN 325 MG TAB PO PRN (23:00)
[2020-02-01] MEDS ORDERED: DEXTROSE (50%) 50ML SYRG IV PRN (23:00)
[2020-02-01] MEDS ORDERED: ONDANSETRON HCL 4 MG/2 ML VIAL IV PRN (23:00)
[2020-02-01] MEDS ORDERED: METOPROLOL TARTRATE 1MG/1ML-5ML VIAL IV PRN (23:00)
--- NOTE | 2020-02-01 23:55 | NUR ---
Telemetry admit from ER LANEY CARDENAS admitted to Telemetry unit after SBAR received. Patient oriented to primary RN, unit, room, bed, and unit policies regarding patient care and visiting hours. Patient now on continuous telemetry monitoring, tele box #56 and telemetry reading on arrival to unit is 61 BPM. Patient with personal wheelchair, patient weighed by bedscale and encouraged to call if they need something. Fall and safety precautions in place. All questions and concerns addressed, patient verbalized understanding and in agreement. Call light within reach and able to use. Will continue to monitor q1h and prn.
--- NOTE | 2020-02-02 | NUR ---
MED NON-ADMIN PATIENT'S BLOOD SUGAR 143. EDUCATED PATIENT ON INDICATION FOR INSULIN FOR APPROPRIATE BLOOD SUGAR CONTROL. PATIENT REFUSES (SEE EMAR). REINFORCED EDUCATION ON IMPORTANCE OF MAINTAINING BLOOD SUGAR, PATIENT VERBALIZED UNDERSTANDING AND CONTINUES TO REFUSE. WILL CONTINUE TO MONITOR.
--- NOTE | 2020-02-02 00:10 | NUR ---
ON-CALL HOSP PAGED PT C/O 9/ PAIN TO LEFT SHOULDER AND CHRONIC BACK PAIN. PT STATES HE TAKES MORPHINE 25MG PO BID FOR CHRONIC PAIN. PATIENT HAS NO PRN FOR MED OR SEVERE PAIN. ON-CALL HOSP PAGED. AWAITING CALL BACK. WILL CONTINUE TO MONITOR.
--- NOTE | 2020-02-02 00:13 | NUR ---
RECEIVED CALL BACK FROM ON-CALL RECEIVED A CALL BACK FROM ON-CALL HOSP. UPDATED MD ON PATIENT STATUS AND PT COMPLAINT. RECEIVED NEW ORDERS, READ BACK AND VERIFIED (SEE NEW ORDERS). WILL CARRY OUT. WILL CONTINUE TO MONITOR.
[2020-02-02] MEDS: ACCU-CHEK COMFORT CURVE STRIP VI SCH ×7 (00:14→23:40)
[2020-02-02] MEDS ORDERED: HYDROcodone-ACET 5/325MG TAB PO PRN (00:15)
[2020-02-02 00:22] VITALS: BP 123/77
[2020-02-02] MEDS: MORPHINE SULFATE 4 MG/ML SYR/VIAL IV PRN ×6 (00:25→22:36)
[2020-02-02] MEDS ORDERED: PNEUMOCOCCAL VACC POLYS 25 MCG/0.5 ML VIAL IM ONE (03:15)
--- NOTE | 2020-02-02 03:45 | NUR ---
[facility] SWAB SENT TO LAB
[2020-02-02] MEDS: InsuLIN REG 1unit/0.01ml Soln (100units/ml) SC SCH ×7 (04:31→23:40)
[2020-02-02 05:00] VITALS: BP 109/59
[2020-02-02 05:26] LABS: Basophils # (auto) 0 10 ^3/uL (0-0.2); Basophils % (auto) 0.8 % (0.0-2.0); Eosinophils # (auto) 0.2 10 ^3/uL (0-0.8); Eosinophils % (auto) 3.5 % (0.0-7.0); Hematocrit 35.9 % (41.0-53.0); Hemoglobin 11.3 g/dL (13.5-17.5); Lymphocytes # (auto) 0.9 10 ^3/uL (0.4-5.4); Lymphocytes % (auto) 16.4 % (10.0-50.0); Mean Corpuscular Hemoglobin 30.4 pg (28.0-32.0); Mean Corpuscular Hgb Conc. 31.3 g/dL (32.0-36.0); Mean Corpuscular Volume 97.1 fL (80.0-100.0); Monocytes # (auto) 0.4 10 ^3/uL (0-1.3); Neutrophils # (auto) 4.1 10 ^3/uL (1.6-8.6); Neutrophils % (auto) 72.3 % (37.0-80.0); Nucleated Red Blood Cells % 0.2 %; Platelet Count (auto) 166 10^3/uL (140-450); Red Cell Distribution Width 18.1 % (11.8-14.3); White Blood Cell 5.6 10^3/uL (4.4-10.8)
[2020-02-02 05:40] LABS: Potassium 4.1 mmol/L (3.5-5.1)
[2020-02-02 05:46] LABS: BUN/Creatinine Ratio 6.6
[2020-02-02 06:00] LABS: Magnesium 4.2 mg/dL (1.6-2.6)
--- NOTE | 2020-02-02 06:10 | NUR ---
CRITICAL - ON-CALL HOSP PAGED RECEIVED CALL FROM LAB REGARDING PATIENT'S CRITICALLY HIGH LABORATORY LEVEL OF MAGNESIUM 4.2. ON-CALL HOSP PAGED AT THIS TIME. AWAITING CALL BACK. WILL CONTINUE TO MONITOR.
--- NOTE | 2020-02-02 06:45 | NUR ---
RECEIVED CALL BACK FROM ON-CALL HOSP RECEIVED A CALL BACK FROM ON-CALL HOSP. UPDATED MD ON PATIENT STATUS AND CRITICAL MAGNESIUM OF 4.2. NO NEW ORDERS RECEIVED. MD STATED TO ENSURE PATIENT HAS CONSULT WITH NEPHRO FOR DIALYSIS. MD INFORMED THAT PATIENT HAS NEPHRO CONSULT IN PLACE. DOUBLE VERIFIED WITH BOOK SALESMAN THAT NEPHRO CONSULT WAS CALLED IN. WILL CONTINUE TO MONITOR.
[2020-02-02 09:00] VITALS: BP 134/77
[2020-02-02] MEDS: DOCUSATE SOD 100 MG CAP PO SCH (09:29)
[2020-02-02] MEDS: ENOXAPARIN SOD 100 MG/1 ML SYRINGE SC SCH ×2 (09:30→22:35)
[2020-02-02] MEDS: CLOPIDOGREL BISULFATE 75 MG TAB PO SCH (09:30)
[2020-02-02] MEDS: CARVEDILOL 3.125 MG TAB PO SCH ×2 (09:30→22:00)
[2020-02-02] MEDS ORDERED: FUROSEMIDE 40 MG/4 ML VIAL IV SCH (10:00)
[2020-02-02] MEDS: PROMETHAZINE HCL 25 MG/ML 1ML IV PRN ×2 (11:00→18:25)
[2020-02-02] MEDS ORDERED: SODIUM CHL 0.9% 1000 ML BAG XX ONE (12:30)
--- NOTE | 2020-02-02 12:30 | NUR ---
wide area network systems administrator at bed side
[2020-02-02 13:00] VITALS: BP 123/72
--- NOTE | 2020-02-02 15:01 | NUR ---
MD Thomson at bed side. New orders received. Will carry out.
[2020-02-02 17:00] VITALS: BP 137/92
[2020-02-02] MEDS: FUROSEMIDE 40 MG/4 ML VIAL IV SCH (17:37)
--- NOTE | 2020-02-02 19:30 | NUR ---
Opening Shift Note Assumed care of patient. Patient AOx4. Fall and safety precautions in place. Call light within reach and able to use. No S/S of distress/SOB. Patient's personal wheelchair at bedside. Instructed on POC and to call for assist PRN, patient verbalized understanding and in agreement. Will continue to monitor for changes Q1hr and PRN.
[2020-02-02 22:00] VITALS: BP 119/67
[2020-02-02] MEDS: ATORVASTATIN 20 MG TAB PO SCH (22:35)
--- NOTE | 2020-02-02 23:56 | NUR ---
REPORT GIVEN ASSIGNMENT CHANGED PER COURT OF APPEALS JUDGE ORDER. REPORT GIVEN TO ELIZABETH HOBSON.
--- NOTE | 2020-02-03 00:35 | NUR ---
Assumed care of pt Pt is laying in bed with even and unlabored respirations. No SOB/ distress or pain noted. Will continue to monitor Q1hr and PRN.
[2020-02-03] MEDS: MORPHINE SULFATE 4 MG/ML SYR/VIAL IV PRN ×5 (03:02→22:07)
[2020-02-03] MEDS: InsuLIN REG 1unit/0.01ml Soln (100units/ml) SC SCH ×6 (04:00→23:52)
[2020-02-03] MEDS: ACCU-CHEK COMFORT CURVE STRIP VI SCH ×6 (04:16→23:52)
[2020-02-03] MEDS: PROMETHAZINE HCL 25 MG/ML 1ML IV PRN ×3 (04:28→20:01)
[2020-02-03 05:00] VITALS: BP 142/85
[2020-02-03] MEDS: FUROSEMIDE 40 MG/4 ML VIAL IV SCH ×2 (05:30→17:41)
[2020-02-03] MEDS: LORazepam 0.5 MG TAB PO PRN (05:44)
--- NOTE | 2020-02-03 07:30 | NUR ---
Opening Shift Note: Assumed care of patient, awake and alert. No S/S of distress/SOB or pain. Bed in lowest locked position, side rails up x 2, call light within reach. Patient instructed on POC and to call for assist PRN, will continue to monitor for changes Q1hr and PRN
[2020-02-03 08:23] LABS: Basophils # (auto) 0 10 ^3/uL (0-0.2); Basophils % (auto) 0.8 % (0.0-2.0); Eosinophils # (auto) 0.2 10 ^3/uL (0-0.8); Eosinophils % (auto) 3.9 % (0.0-7.0); Hematocrit 38.3 % (41.0-53.0); Hemoglobin 12.1 g/dL (13.5-17.5); Lymphocytes # (auto) 0.8 10 ^3/uL (0.4-5.4); Lymphocytes % (auto) 15.6 % (10.0-50.0); Mean Corpuscular Hemoglobin 30.2 pg (28.0-32.0); Mean Corpuscular Hgb Conc. 31.5 g/dL (32.0-36.0); Mean Corpuscular Volume 95.7 fL (80.0-100.0); Monocytes # (auto) 0.4 10 ^3/uL (0-1.3); Monocytes % (auto) 8.1 % (0.0-12.0); Neutrophils # (auto) 3.8 10 ^3/uL (1.6-8.6); Neutrophils % (auto) 71.6 % (37.0-80.0); Nucleated Red Blood Cells % 0.1 %; Platelet Count (auto) 136 10^3/uL (140-450); Red Cell Distribution Width 17.9 % (11.8-14.3); White Blood Cell 5.3 10^3/uL (4.4-10.8)
[2020-02-03 08:29] LABS: Anion Gap 11 (5-15); Blood Urea Nitrogen 38 mg/dL (7-18); Calcium 8.3 mg/dL (8.5-10.1); Carbon Dioxide 24 mmol/L (21-32); Chloride 96 mmol/L (98-107); Glucose 115 mg/dL (74-106); Potassium 4.1 mmol/L (3.5-5.1); Sodium 131 mmol/L (136-145)
[2020-02-03 08:31] LABS: GFR African American 11 mL/min; GFR Non-African American 9 mL/min
[2020-02-03 08:36] LABS: BUN/Creatinine Ratio 5.8
--- NOTE | 2020-02-03 08:39 | NUR ---
ACCU CHECK DONE ORDERED,BLOOD SUGAR RESULT 169 PATIENT REFUSED INSULIN STATED "I WILL ONLY TAKE INSULIN IF SUGAR IS ABOVE 180" EXPLAIN IMPORTANCE AND INDICATION OF INSULIN VERBALIZED UNDERSTANDING BUT STILL REFUSED.
--- NOTE | 2020-02-03 08:49 | NUR ---
C/O PAIN TO BACK AND LEG,MEDICATED WITH MSO4 4 MG IV SEE eMAR FOR DETAIL
[2020-02-03 09:00] VITALS: BP 153/91
[2020-02-03] MEDS: ENOXAPARIN SOD 100 MG/1 ML SYRINGE SC SCH ×2 (09:53→22:05)
[2020-02-03] MEDS: DOCUSATE SOD 100 MG CAP PO SCH (09:53)
[2020-02-03] MEDS: CLOPIDOGREL BISULFATE 75 MG TAB PO SCH (09:54)
[2020-02-03] MEDS: CARVEDILOL 3.125 MG TAB PO SCH ×2 (09:54→22:06)
[2020-02-03] MEDS: CALCIUM ACETATE 667 MG CAP PO SCH ×2 (12:50→17:40)
[2020-02-03 13:00] VITALS: BP 159/74
--- NOTE | 2020-02-03 13:05 | NUR ---
C/O NAUSEA AND PAIN TO BACK AND BILATERAL LOWER EXTREMITIES,MEDICATED WITH PHENERGAN 12,5 IV AND MORPHINE 4 MG IV SEE eMAR FOR DETAIL
--- NOTE | 2020-02-03 15:45 | NUR ---
MD VISIT HERE TO SEE AND EXAMINED PATIENT RECEIVED ORDER TO KEEP PATIENT NPO POST MIDNIGHT FOR STRESS TEST IN A.M.
[2020-02-03 17:00] VITALS: BP 143/95
--- NOTE | 2020-02-03 19:32 | NUR ---
STATUS UNCHANGED,REPORT GIVEN TO INCOMING NOC SHIFT RN
--- NOTE | 2020-02-03 19:35 | NUR ---
Opening Shift Note Assumed care of patient, awake and alert. A&Ox4. Patient dangling feet in bed. No S/S of distress/SOB or pain. Safety measures maintained by keeping the bed locked in lowest position, 2 side rails up, personal items and call light within reach. Wheelchair at bedside. Instructed on POC and to call for assist PRN, will continue to monitor for changes Q1hr and PRN.
[2020-02-03] MEDS: ATORVASTATIN 20 MG TAB PO SCH (22:05)
[2020-02-03 22:36] VITALS: BP 134/86
[2020-02-04] MEDS: PROMETHAZINE HCL 25 MG/ML 1ML IV PRN ×4 (02:05→22:26)
[2020-02-04] MEDS: MORPHINE SULFATE 4 MG/ML SYR/VIAL IV PRN ×5 (02:08→20:01)
--- NOTE | 2020-02-04 03:51 | NUR ---
Patient getting frequent nosebleeds. Humidifier placed.
[2020-02-04] MEDS: ACCU-CHEK COMFORT CURVE STRIP VI SCH ×5 (03:52→20:12)
[2020-02-04] MEDS: InsuLIN REG 1unit/0.01ml Soln (100units/ml) SC SCH ×5 (03:53→20:00)
[2020-02-04 05:17] VITALS: BP 152/97
--- NOTE | 2020-02-04 05:30 | NUR ---
IV insertion IV access obtained, via clean sterile technique by inserting 20 gauge catheter at CECILIA after 3 attempt(s). IV secured properly. No trauma to site. Patient tolerated well.
[2020-02-04] MEDS: FUROSEMIDE 40 MG/4 ML VIAL IV SCH ×2 (06:13→17:53)
[2020-02-04 06:19] LABS: Basophils # (auto) 0 10 ^3/uL (0-0.2); Basophils % (auto) 0.8 % (0.0-2.0); Eosinophils # (auto) 0.2 10 ^3/uL (0-0.8); Eosinophils % (auto) 4.8 % (0.0-7.0); Hematocrit 34.2 % (41.0-53.0); Hemoglobin 11.2 g/dL (13.5-17.5); Lymphocytes # (auto) 0.7 10 ^3/uL (0.4-5.4); Lymphocytes % (auto) 14.2 % (10.0-50.0); Mean Corpuscular Hemoglobin 31.5 pg (28.0-32.0); Mean Corpuscular Hgb Conc. 32.8 g/dL (32.0-36.0); Mean Corpuscular Volume 96.2 fL (80.0-100.0); Monocytes # (auto) 0.6 10 ^3/uL (0-1.3); Monocytes % (auto) 10.8 % (0.0-12.0); Neutrophils # (auto) 3.6 10 ^3/uL (1.6-8.6); Neutrophils % (auto) 69.4 % (37.0-80.0); Platelet Count (auto) 141 10^3/uL (140-450); Red Blood Cells 3.56 10^6/uL (4.5-5.90); White Blood Cell 5.2 10^3/uL (4.4-10.8)
[2020-02-04 06:32] LABS: Calcium 8.5 mg/dL (8.5-10.1); Potassium 4.7 mmol/L (3.5-5.1)
[2020-02-04 06:40] LABS: BUN/Creatinine Ratio 7.4
[2020-02-04] MEDS ORDERED: SODIUM CHL 0.9% 1000 ML BAG XX ONE (07:00)
--- NOTE | 2020-02-04 07:30 | NUR ---
Opening Shift Note: Assumed care of patient, awake and alert. No S/S of distress/SOB or pain. Bed in lowest locked position, side rails up x 2, call light within reach. Patient instructed on POC,NPO for stress test procedure and to call for assist PRN, will continue to monitor for changes Q1hr and prn
[2020-02-04] MEDS: LORazepam 0.5 MG TAB PO PRN (07:57)
--- NOTE | 2020-02-04 07:57 | NUR ---
patient c/o being very anxious for stress test procedure,called stress test lab ok to give Ativan,Ativan given 0.5 mg po
[2020-02-04] MEDS: CALCIUM ACETATE 667 MG CAP PO SCH ×3 (08:00→17:52)
--- NOTE | 2020-02-04 08:00 | NUR ---
Patient refused stress test to be done,stated he will do it in A.M.,stress test lab called and informed
[2020-02-04 09:00] VITALS: BP 134/78
--- NOTE | 2020-02-04 11:00 | NUR ---
PRECISION MILLWRIGHT AT BEDSIDE,HEMODIALYSIS TREATMENT STARTED
--- NOTE | 2020-02-04 12:55 | NUR ---
INFORMED DR. CAPONE LEFT FORE ARM WITH SCRATCH HAS BEEN BLEEDING NONE STOP AND PATIENT IS RECEIVING LOVENOX 100 MG SQ RECEIVED ORDER TO DISCONTINUE LOVENOX.
--- NOTE | 2020-02-04 12:55 | NUR ---
MD VISIT DR. CAPONE HERE TO SEE PATIENT INFORMED OF LOW Na+ 127,
[2020-02-04 13:00] VITALS: BP 134/75
--- NOTE | 2020-02-04 14:00 | NUR ---
HEMODIALYSIS TREATMENT ENDED,TOLERATED WELL
[2020-02-04] MEDS: DOCUSATE SOD 100 MG CAP PO SCH (14:09)
[2020-02-04] MEDS: CLOPIDOGREL BISULFATE 75 MG TAB PO SCH (14:10)
[2020-02-04] MEDS: CARVEDILOL 3.125 MG TAB PO SCH ×2 (14:10→22:00)
[2020-02-04 17:00] VITALS: BP 140/84
--- NOTE | 2020-02-04 19:30 | NUR ---
Opening Shift Note Assumed care of patient, awake and alert. A&Ox4. No S/S of distress/SOB or pain. Safety measures maintained by keeping the bed locked in lowest position, 2 side rails up, personal items, and call light within reach. Wheelchair at bedside. Instructed on POC and to call for assist PRN, will continue to monitor for changes Q1hr and PRN.
[2020-02-04] MEDS: ATORVASTATIN 20 MG TAB PO SCH (21:53)
[2020-02-04 22:00] VITALS: BP 114/70
[2020-02-05] MEDS: MORPHINE SULFATE 4 MG/ML SYR/VIAL IV PRN ×5 (01:53→21:09)
[2020-02-05] MEDS: InsuLIN REG 1unit/0.01ml Soln (100units/ml) SC SCH ×6 (04:00→20:00)
[2020-02-05] MEDS: ACCU-CHEK COMFORT CURVE STRIP VI SCH ×6 (04:28→20:00)
[2020-02-05 05:00] VITALS: BP 126/74
[2020-02-05] MEDS: FUROSEMIDE 40 MG/4 ML VIAL IV SCH ×3 (06:02→18:00)
[2020-02-05] MEDS: PROMETHAZINE HCL 25 MG/ML 1ML IV PRN ×3 (06:02→21:09)
[2020-02-05] MEDS: CALCIUM ACETATE 667 MG CAP PO SCH ×3 (07:40→17:09)
[2020-02-05 09:00] VITALS: BP 108/62
[2020-02-05] MEDS: DOCUSATE SOD 100 MG CAP PO SCH (09:09)
[2020-02-05] MEDS: CLOPIDOGREL BISULFATE 75 MG TAB PO SCH (09:17)
[2020-02-05] MEDS: CARVEDILOL 3.125 MG TAB PO SCH ×2 (09:17→21:10)
[2020-02-05 10:16] LABS: Basophils # (auto) 0 10 ^3/uL (0-0.2); Basophils % (auto) 0.9 % (0.0-2.0); Eosinophils # (auto) 0.3 10 ^3/uL (0-0.8); Eosinophils % (auto) 5.9 % (0.0-7.0); Hematocrit 32.5 % (41.0-53.0); Lymphocytes # (auto) 0.7 10 ^3/uL (0.4-5.4); Lymphocytes % (auto) 15.5 % (10.0-50.0); Mean Corpuscular Hemoglobin 31.9 pg (28.0-32.0); Mean Corpuscular Hgb Conc. 33.9 g/dL (32.0-36.0); Monocytes # (auto) 0.4 10 ^3/uL (0-1.3); Monocytes % (auto) 10.1 % (0.0-12.0); Neutrophils # (auto) 2.9 10 ^3/uL (1.6-8.6); Neutrophils % (auto) 67.6 % (37.0-80.0); Nucleated Red Blood Cells % 0.1 %; Platelet Count (auto) 122 10^3/uL (140-450); Red Blood Cells 3.46 10^6/uL (4.5-5.90); Red Cell Distribution Width 16.9 % (11.8-14.3); White Blood Cell 4.3 10^3/uL (4.4-10.8)
[2020-02-05 10:35] LABS: Calcium 8.1 mg/dL (8.5-10.1)
[2020-02-05] MEDS: LORazepam 0.5 MG TAB PO PRN ×2 (12:06→22:14)
[2020-02-05 13:00] VITALS: BP 133/85
--- NOTE | 2020-02-05 13:21 | NUR ---
PT NPO FOR STRESS TEST. PER NUCLEAR MED, PT HAS REFUSED THE STRESS TEST FOR 2 DAYS, AND HE WAS NOT ON THE SCHEDULE TODAY. EXPLAINED TO PT, VERBALIZED UNDERSTANDING. PT TO BE NPO AFTER MIDNIGHT TONIGHT FOR STRESS TEST TOMORROW.
--- NOTE | 2020-02-05 15:30 | NUR ---
Nutrition Assessment Notes Please refer to link for full assessment notes. Est Energy needs: 9079-6100 kcals (23-25 kcal/kgBW) d/t pt with ESRD on HD Est Protein needs: 67-101 gms/day (1.0-1.5 gm/kgIBW) Will continue to monitor and reassess prn. Addendum: 02/05/20 at [address] Amended: Links added.
[2020-02-05 16:41] VITALS: BP 143/86
--- NOTE | 2020-02-05 18:58 | NUR ---
PT IV CAME OUT X 2 TODAY. ORDER PLACED FOR MIDLINE, PICC LINE PAGED AND AWAITING RETURN CALL AT THIS TIME.
--- NOTE | 2020-02-05 21:00 | NUR ---
IV insertion IV access obtained, via clean sterile technique by inserting 22 gauge catheter at RIGHT WRIST after 1 attempt. IV secured properly. No trauma to site. Patient tolerated well. NOTE: IV INSERTED BY ESME HOBSON
[2020-02-05] MEDS: ATORVASTATIN 20 MG TAB PO SCH (21:10)
[2020-02-05 22:00] VITALS: BP 126/77
[2020-02-06] MEDS: ACCU-CHEK COMFORT CURVE STRIP VI SCH ×7 (00:20→23:53)
[2020-02-06] MEDS: MORPHINE SULFATE 4 MG/ML SYR/VIAL IV PRN ×5 (01:59→23:28)
[2020-02-06] MEDS: InsuLIN REG 1unit/0.01ml Soln (100units/ml) SC SCH ×7 (04:00→23:52)
[2020-02-06 05:00] VITALS: BP 132/83
[2020-02-06] MEDS: FUROSEMIDE 40 MG/4 ML VIAL IV SCH ×2 (06:12→18:49)
[2020-02-06] MEDS: PROMETHAZINE HCL 25 MG/ML 1ML IV PRN ×3 (06:14→18:49)
[2020-02-06 06:22] LABS: Basophils # (auto) 0 10 ^3/uL (0-0.2); Basophils % (auto) 0.5 % (0.0-2.0); Eosinophils # (auto) 0.2 10 ^3/uL (0-0.8); Eosinophils % (auto) 3.5 % (0.0-7.0); Hematocrit 35.7 % (41.0-53.0); Hemoglobin 11.4 g/dL (13.5-17.5); Lymphocytes # (auto) 0.7 10 ^3/uL (0.4-5.4); Lymphocytes % (auto) 11.2 % (10.0-50.0); Mean Corpuscular Hemoglobin 30.9 pg (28.0-32.0); Mean Corpuscular Volume 96.6 fL (80.0-100.0); Monocytes # (auto) 0.7 10 ^3/uL (0-1.3); Monocytes % (auto) 10.7 % (0.0-12.0); Neutrophils # (auto) 4.9 10 ^3/uL (1.6-8.6); Neutrophils % (auto) 74.1 % (37.0-80.0); Platelet Count (auto) 132 10^3/uL (140-450); White Blood Cell 6.6 10^3/uL (4.4-10.8)
[2020-02-06 06:41] LABS: BUN/Creatinine Ratio 7.7; Calcium 8.1 mg/dL (8.5-10.1); Potassium 4.7 mmol/L (3.5-5.1)
--- NOTE | 2020-02-06 06:45 | NUR ---
DIALYSIS NURSE AT BEDSIDE
[2020-02-06] MEDS ORDERED: SODIUM CHL 0.9% 1000 ML BAG XX ONE (07:00)
[2020-02-06] MEDS: CALCIUM ACETATE 667 MG CAP PO SCH ×3 (08:00→18:15)
[2020-02-06 09:00] VITALS: BP 146/99
[2020-02-06] MEDS: CARVEDILOL 3.125 MG TAB PO SCH ×2 (10:00→22:00)
[2020-02-06] MEDS: DOCUSATE SOD 100 MG CAP PO SCH (10:00)
[2020-02-06] MEDS ORDERED: ADENOSINE 86 MG in GIVE UN-DILUTED 0 ML IV STA (10:50)
[2020-02-06] MEDS ORDERED: MAGNESIUM CITRATE SOLUTION 300 ML BTL PO ONE (12:00)
[2020-02-06 12:59] VITALS: BP 158/87
[2020-02-06] MEDS: CLOPIDOGREL BISULFATE 75 MG TAB PO SCH (13:09)
[2020-02-06 16:49] VITALS: BP 141/80
--- NOTE | 2020-02-06 18:43 | NUR ---
Midline Placement: Patient educated on need for midline placement. All risks and benefits explained and all questions and concerns addresses prior to procedure. 18g/10cm midline inserted via LEFT BRACHIAL vein using Ultrasound. Sterile technique utilized. Blood return obtained from THE lumen and flushed easily with NS using proper technique. Midline secured with saline lock; biodisc and occlusive dressing applied. Primary RN notified. Midline lot # [id number].
[2020-02-06 22:00] VITALS: BP 137/75
--- NOTE | 2020-02-06 22:01 | NUR ---
HOSPITALIST PAGED PATIENT REQUESTING ENEMA. PATIENT REPORTS NO BM SINCE MONDAY.
--- NOTE | 2020-02-06 22:30 | NUR ---
HOSPITALIST PAGED. PATIENT REQUESTING ENEMA.
[2020-02-06] MEDS: ATORVASTATIN 20 MG TAB PO SCH (22:51)
--- NOTE | 2020-02-06 22:59 | NUR ---
HOSPITALIST RETURNS CALL SPOKE TO HOSPITALIST FLORECITA, NEW ORDERS RECEIVED, READ BACK AND VERIFIED.
--- NOTE | 2020-02-06 23:40 | NUR ---
ENEMA PATIENT GIVEN ENEMA ORDERED. PATIENT TOLERATED WELL.
--- NOTE | 2020-02-07 00:24 | NUR ---
BOWEL MOVEMENT PATIENT HAD LARGE BOWEL MOVEMENT IN BEDSIDE COMMODE.
[2020-02-07] MEDS: PROMETHAZINE HCL 25 MG/ML 1ML IV PRN ×3 (01:00→18:00)
[2020-02-07] MEDS: InsuLIN REG 1unit/0.01ml Soln (100units/ml) SC SCH ×5 (04:00→20:06)
[2020-02-07] MEDS: MORPHINE SULFATE 4 MG/ML SYR/VIAL IV PRN ×5 (04:22→22:58)
[2020-02-07] MEDS: ACCU-CHEK COMFORT CURVE STRIP VI SCH ×5 (04:25→20:02)
[2020-02-07 04:58] VITALS: BP 126/74
[2020-02-07] MEDS: FUROSEMIDE 40 MG/4 ML VIAL IV SCH ×2 (06:08→17:59)
[2020-02-07] MEDS: CALCIUM ACETATE 667 MG CAP PO SCH ×3 (08:12→17:59)
[2020-02-07] MEDS: CLOPIDOGREL BISULFATE 75 MG TAB PO SCH (09:20)
[2020-02-07] MEDS: DOCUSATE SOD 100 MG CAP PO SCH (09:20)
[2020-02-07] MEDS: CARVEDILOL 3.125 MG TAB PO SCH ×2 (09:20→22:00)
[2020-02-07 09:21] VITALS: BP 139/79
[2020-02-07] MEDS: LORazepam 0.5 MG TAB PO PRN (11:40)
[2020-02-07 13:14] VITALS: BP 132/81
--- NOTE | 2020-02-07 16:53 | NUR ---
HD/DC MD wanted to discharge patient but the patient said his HD is MWF and he wouldn't be able to go until Monday without it and would end up back in the hospital on Monday. MD said he would talk to the Dry Chain Operator (Dr. Bennett) and get HD for Monday and he could be D/C'd after that. This nurse called Dr. Bennett. Dr. Up called back and said they could do HD today and the patient could be D/Cd. Notified Dr. Little. He said the patient could do HD today and then be discharged tomorrow morning. Patient aware.
[2020-02-07 17:10] VITALS: BP 124/79
--- NOTE | 2020-02-07 20:11 | NUR ---
open note assumed care of pt, upon entering room pt awake and alert on room air with no distress observed or reported. pt denies any pain. pt oriented to this nurse and updated on plan of care. pt bed locked, low and 2x rails up. this nurse performed linen change while pt sits in wheelchair. call light in reach, this nurse to round q1hr and prn. pt encouraged to call as needed.
[2020-02-07 22:00] VITALS: BP 136/79
[2020-02-07] MEDS: ATORVASTATIN 20 MG TAB PO SCH (22:00)
--- NOTE | 2020-02-07 22:23 | NUR ---
report given to Daniel HOBSON. pt is presently breathing evenly on 4L nc with eyes closed, breathing even and unlabored. call light in reach.
[2020-02-07] MEDS ORDERED: diphenhdrAMINE HCL 25 MG CAP PO ONE (23:45)
[2020-02-08] MEDS: PROMETHAZINE HCL 25 MG/ML 1ML IV PRN (00:09)
[2020-02-08] MEDS: ACCU-CHEK COMFORT CURVE STRIP VI SCH ×5 (04:00→16:00)
[2020-02-08] MEDS: InsuLIN REG 1unit/0.01ml Soln (100units/ml) SC SCH ×5 (04:00→16:00)
[2020-02-08] MEDS: MORPHINE SULFATE 4 MG/ML SYR/VIAL IV PRN ×2 (04:19→10:17)
[2020-02-08 05:00] VITALS: BP 100/70
[2020-02-08] MEDS: FUROSEMIDE 40 MG/4 ML VIAL IV SCH (07:30)
--- NOTE | 2020-02-08 07:40 | NUR ---
Assumed care Patient found on floor by MANISH. This RN was in the middle of handoff report at this time and immediately went to assist. Patient had been helped to bed by Angelita HAMMOND. No open wounds noted at this time upon body inspection. Patient denies any pain. VS taken at this time: T- 98.1, BP- 160/91, HR- 85, O2 sat 87%. Patient was asked if he remembered how he ended up in the floor. Patient could not recall information at this time and states he doesn't remember why he was in the floor. Patient not wearing non-skid socks at this time, patient was asked to place socks back on and assistance was offered. Patient refuses to place socks on at this time. Patient removed O2 and NC was found laying in bed, patient states "I'm trying to wean myself out of the oxygen so I took it off". Patient educated on importance of complying with O2 therapy at this time. Patient placed on 4 L O2 via NC at this time, patient O2 sat increased to 93%. Patient instructed to call for assistance before attempting to get up to be assessed and assisted by medical personal. Patient verbalizes understanding of instructions and teaching at this time. Bed in lowest, locked position with 2 side rails up, call light within reach. Will Page and notify MD of occurrence.
[2020-02-08] MEDS: DOCUSATE SOD 100 MG CAP PO SCH (08:32)
[2020-02-08] MEDS: LORazepam 0.5 MG TAB PO PRN (08:32)
[2020-02-08] MEDS: CLOPIDOGREL BISULFATE 75 MG TAB PO SCH (08:32)
[2020-02-08] MEDS: CARVEDILOL 3.125 MG TAB PO SCH (08:36)
[2020-02-08] MEDS: CALCIUM ACETATE 667 MG CAP PO SCH ×2 (08:37→12:00)
[2020-02-08 08:57] VITALS: BP 128/77
--- NOTE | 2020-02-08 12:15 | NUR ---
[facility] contacted [facility] was contacted to provide transportation for medical discharge. Transportation setup for 1600 at this time.
[2020-02-08 12:48] VITALS: BP 152/76
[2020-02-08 13:47] VITALS: BP 142/72
--- NOTE | 2020-02-08 16:20 | NUR ---
Discharge instructions given as ordered. Encourage to follow up with PMD as instructed. All questions and concerns addressed. Patient verbalized understanding. Medication reconciliation form completed and copy given to patient. IV removed with catheter intact, pressure dressing applied. Telemetry unit returned to ICU. Patient taken to vehicle via wheelchair with all personal belongings accompanied by staff in own personal wheelchair. No distress noted at time of departure.
== END 2020-02-08 16:30 | disposition home or self-care (01) | DRG 280 ==
LOC: EDBD 16:28 → ER 16:28 → TELE-WESTW 16:29
PROVIDERS: ADMIT Hospitalist; ATTEND Family Medicine
DX: I13.2 Hypertensive heart and chronic kidney disease with heart failure and with stage 5 chronic kidney disease, or end stage renal disease (principal); I21.A1 Myocardial infarction type 2; N18.6 End stage renal disease; I50.43 Acute on chronic combined systolic (congestive) and diastolic (congestive) heart failure; E87.1 Hypo-osmolality and hyponatremia; I24.9 Acute ischemic heart disease, unspecified; I25.5 Ischemic cardiomyopathy; E11.51 Type 2 diabetes mellitus with diabetic peripheral angiopathy without gangrene; E11.22 Type 2 diabetes mellitus with diabetic chronic kidney disease; Z83.3 Family history of diabetes mellitus; I48.0 Paroxysmal atrial fibrillation; E83.39 Other disorders of phosphorus metabolism; E78.5 Hyperlipidemia, unspecified; D63.1 Anemia in chronic kidney disease; E03.9 Hypothyroidism, unspecified; G89.4 Chronic pain syndrome; K27.9 Peptic ulcer, site unspecified, unspecified as acute or chronic, without hemorrhage or perforation; G47.33 Obstructive sleep apnea (adult) (pediatric); E66.9 Obesity, unspecified; I25.10 Atherosclerotic heart disease of native coronary artery without angina pectoris; F32.9 Major depressive disorder, single episode, unspecified; K21.9 Gastro-esophageal reflux disease without esophagitis; F41.9 Anxiety disorder, unspecified; M54.9 Dorsalgia, unspecified; I25.2 Old myocardial infarction; Z87.11 Personal history of peptic ulcer disease; Z91.14 Patient's other noncompliance with medication regimen; Z99.2 Dependence on renal dialysis; Z68.32 Body mass index [BMI] 32.0-32.9, adult; Z79.4 Long term (current) use of insulin; Z82.49 Family history of ischemic heart disease and other diseases of the circulatory system
CPT/HCPCS: 36415; 71045; 78452; 80048; 80053; 80061; 82306; 82962; 83036; 83735; 83880; 83970; 84100; 84443; 84484; 85025; 85379; 85610; 85730; 87081; 90935; 93005; 93017; 99291; G0378; J0153; J1642; J1815; J2405

== ENCOUNTER 2020-03-08 13:18 | Inpatient (IN) | payer MEDICARE, OTHER ==
[~2020-03-08] VITALS: Ht 172.7 cm; Wt 100.0 kg
[2020-03-08] MEDS ORDERED: SODIUM CHLORIDE 0.9% 1,000 ML IV ONE (21:15)
[2020-03-08] MEDS ORDERED: MORPHINE SULFATE 4 MG/ML SYR/VIAL IV ONE (21:15)
[2020-03-08] MEDS ORDERED: PROMETHAZINE HCL 25 MG/ML 1ML IV ONE (21:15)
[2020-03-08 21:26] LABS: Basophils # (auto) 0 10 ^3/uL (0-0.2); Basophils % (auto) 0.7 % (0.0-2.0); Eosinophils # (auto) 0.2 10 ^3/uL (0-0.8); Eosinophils % (auto) 2.8 % (0.0-7.0); Hematocrit 38.3 % (41.0-53.0); Hemoglobin 12.5 g/dL (13.5-17.5); Lymphocytes # (auto) 0.5 10 ^3/uL (0.4-5.4); Lymphocytes % (auto) 8.4 % (10.0-50.0); Mean Corpuscular Hemoglobin 30.8 pg (28.0-32.0); Mean Corpuscular Hgb Conc. 32.6 g/dL (32.0-36.0); Mean Corpuscular Volume 94.5 fL (80.0-100.0); Monocytes # (auto) 0.4 10 ^3/uL (0-1.3); Monocytes % (auto) 7.7 % (0.0-12.0); Neutrophils # (auto) 4.4 10 ^3/uL (1.6-8.6); Neutrophils % (auto) 80.4 % (37.0-80.0); Platelet Count (auto) 146 10^3/uL (140-450); Red Blood Cells 4.05 10^6/uL (4.5-5.90); Red Cell Distribution Width 18.6 % (11.8-14.3); White Blood Cell 5.4 10^3/uL (4.4-10.8)
[2020-03-08 21:58] LABS: Albumin 3.8 g/dL (3.4-5.0); Calcium 8.4 mg/dL (8.5-10.1)
[2020-03-08 22:10] LABS: BUN/Creatinine Ratio 7.9; Potassium 5.2 mmol/L (3.5-5.1); Total Protein 7.5 g/dL (6.4-8.2)
[2020-03-08 22:39] LABS: Urine Bacteria FEW /hpf (None Seen); Urine Blood Negative /uL (Negative); Urine Mucus FEW (None Seen); Urine Specific Gravity 1.014 (1.001-1.035); Urine WBC 1 /hpf (0 - 3)
[2020-03-08] MEDS ORDERED: metroNIDAZOLE 500MG/100ML 100 ML IV ONE (23:15)
[2020-03-08] MEDS ORDERED: CIPROFLOXACIN 400MG/200ML 200 ML IV ONE (23:15)
[2020-03-08 23:57] LABS: INR 1.13 (0.9-1.15); Partial Thromboplastin Time 28.6 sec (23.0-31.2)
[2020-03-09] MEDS ORDERED: MORPHINE SULFATE 4 MG/ML SYR/VIAL IV ONE
[2020-03-09] MEDS ORDERED: NITROGLYCERIN 0.4 MG SL TAB SL PRN (00:30)
[2020-03-09] MEDS ORDERED: DEXTROSE (50%) 50ML SYRG IV PRN (00:30)
[2020-03-09] MEDS ORDERED: FUROSEMIDE 40 MG/4 ML VIAL IV ONE (00:30)
[2020-03-09] MEDS ORDERED: MORPHINE SULF INJ 2 MG/ML SYRINGE 1ML IV PRN (00:30)
[2020-03-09] MEDS ORDERED: ONDANSETRON HCL 4 MG/2 ML VIAL IV PRN (00:30)
[2020-03-09 03:10] VITALS: BP 135/85
--- NOTE | 2020-03-09 03:10 | NUR ---
Telemetry admit from ER LANEY CARDENAS admitted to Telemetry unit. Patient oriented to JUAN MANNING RN primary RN, unit, room, bed, and unit policies regarding patient care and visiting hours. Patient now on continuous telemetry monitoring, tele box # 43 and telemetry reading on arrival to unit is 56. Patient vital signs taken and weighed by bed scale and encouraged to call if they need something. All questions and concerns addressed, patient verbalized understanding.
[2020-03-09] MEDS: MORPHINE SULFATE 4 MG/ML SYR/VIAL IV PRN ×3 (04:09→13:48)
--- NOTE | 2020-03-09 04:09 | NUR ---
patient states 10/10 abdominal pain. pain medication administered at this time.
--- NOTE | 2020-03-09 04:39 | NUR ---
reassessed pain. patient states 2/10 pain to abdomen and he is comfortable.
[2020-03-09] MEDS ORDERED: PERCOT PO (05:01)
[2020-03-09] MEDS ORDERED: PROM25TA5 PO (05:01)
[2020-03-09] MEDS ORDERED: AMIO100T6 PO (05:01)
[2020-03-09] MEDS ORDERED: PANT40TA2 PO (05:01)
[2020-03-09] MEDS ORDERED: DIAZ10TA3 PO (05:01)
[2020-03-09] MEDS: FUROSEMIDE 20 MG/2 ML VIAL IV SCH ×2 (05:47→17:43)
[2020-03-09] MEDS: metroNIDAZOLE 500MG/100ML 100 ML IV SCH ×3 (05:47→22:27)
[2020-03-09] MEDS: ACCU-CHEK COMFORT CURVE STRIP VI SCH ×4 (05:48→23:36)
[2020-03-09] MEDS: InsuLIN REG 1unit/0.01ml Soln (100units/ml) SC SCH ×4 (05:48→23:36)
[2020-03-09 06:00] VITALS: BP 126/85
[2020-03-09 09:11] VITALS: BP 118/53
[2020-03-09] MEDS: cefTRIAXone 1GM/50ML D5W 50 ML IV SCH (09:24)
[2020-03-09] MEDS: PANTOPRAZOLE 40 MG/10 ML VIAL INJ IV SCH (09:24)
--- NOTE | 2020-03-09 10:26 | NUR ---
Midline Placement: Patient educated on need for midline placement. All risks and benefits explained and all questions and concerns addresses prior to procedure. 18g/10cm midline inserted via right brachial vein using Ultrasound. Sterile technique utilized. Blood return obtained from the single lumen and flushed easily with NS using proper technique. Midline secured with saline lock; biodisc and occlusive dressing applied. Primary RN Raj notified. Midline lot # [id number]
[2020-03-09] MEDS ORDERED: PROMETHAZINE W/CODEINE 5 ML ORAL SYRUP PO PRN (12:00)
[2020-03-09] MEDS ORDERED: PROMETHAZINE HCL 25 MG/ML 1ML IV PRN (12:00)
[2020-03-09] MEDS: PROMETHAZINE HCL 25 MG/ML 1ML IV PRN ×2 (12:42→20:26)
[2020-03-09 13:00] VITALS: BP 124/68
--- NOTE | 2020-03-09 15:50 | NUR ---
1545 03/09/20 I received a call from Aida at [facility] asking if patient is stable to be transferred back in network (most likely it would be [facility]). I spoke with Dr. Leiva and he said he is waiting for Dr. Badillo to see patient-patient not stable for transfer back in network today-will reassess tomorrow-I relayed this information to Aida at [facility] [phone].
--- NOTE | 2020-03-09 16:31 | NUR ---
Dr. Ruiz paged regarding patient wants Diazepam 10 mg at bedtime. Awaiting to call back.
[2020-03-09 16:50] VITALS: BP 140/91
[2020-03-09] MEDS: MORPHINE SULF INJ 2 MG/ML SYRINGE 1ML IV PRN ×2 (17:50→22:28)
--- NOTE | 2020-03-09 19:45 | NUR ---
Opening Shift Note Assumed care of patient. Awake, alert and oriented x4. No S/S of distress/SOB or pain at this time. Pt is sitting in his wheelchair, on 2L nasal cannula with even and unlabored respirations. Instructed on POC and to call for assist PRN. Bed locked, in lowest position, call light within reach, side rails up x2. Will continue to monitor for changes Q1hr and PRN.
--- NOTE | 2020-03-09 20:25 | NUR ---
Hospitalist paged Pt requesting IV Benadryl for itching
--- NOTE | 2020-03-09 21:12 | NUR ---
Call back from hospitalist New orders received for PO Benadryl 25mg x1
[2020-03-09] MEDS ORDERED: diphenhdrAMINE HCL 25 MG CAP PO ONE (21:15)
[2020-03-09 22:00] VITALS: BP 155/63
[2020-03-09] MEDS: SACUBITRIL-VALSARTAN 24mg/26mg TAB PO SCH (22:00)
[2020-03-09] MEDS: diazePAM 2 MG TAB PO SCH (23:35)
--- NOTE | 2020-03-10 02:00 | NUR ---
Hospitalist paged Pts HR dropping into the high 20's. BP 149/66, O2 96% on 2L
--- NOTE | 2020-03-10 02:25 | NUR ---
Call back from hospitalist Pt is asymptomatic. No new orders received. Hospitalist referred care to inseamer for further follow up. Will continue to monitor.
[2020-03-10 05:00] VITALS: BP 137/93
[2020-03-10] MEDS: ACCU-CHEK COMFORT CURVE STRIP VI SCH ×3 (06:00→17:05)
[2020-03-10] MEDS: InsuLIN REG 1unit/0.01ml Soln (100units/ml) SC SCH ×3 (06:00→17:12)
[2020-03-10] MEDS: FUROSEMIDE 20 MG/2 ML VIAL IV SCH ×2 (06:41→17:05)
[2020-03-10] MEDS: metroNIDAZOLE 500MG/100ML 100 ML IV SCH ×3 (06:41→22:00)
[2020-03-10] MEDS ORDERED: LEVOTHYROXINE SODIUM 50 MCG TAB PO SCH (07:00)
[2020-03-10 07:36] LABS: Basophils # (auto) 0.1 10 ^3/uL (0-0.2); Basophils % (auto) 1.3 % (0.0-2.0); Eosinophils # (auto) 0.3 10 ^3/uL (0-0.8); Eosinophils % (auto) 5.6 % (0.0-7.0); Hematocrit 38.2 % (41.0-53.0); Hemoglobin 12.8 g/dL (13.5-17.5); Lymphocytes # (auto) 0.6 10 ^3/uL (0.4-5.4); Lymphocytes % (auto) 9.9 % (10.0-50.0); Mean Corpuscular Hemoglobin 31.4 pg (28.0-32.0); Mean Corpuscular Hgb Conc. 33.4 g/dL (32.0-36.0); Monocytes # (auto) 0.5 10 ^3/uL (0-1.3); Monocytes % (auto) 8.5 % (0.0-12.0); Neutrophils # (auto) 4.2 10 ^3/uL (1.6-8.6); Neutrophils % (auto) 74.7 % (37.0-80.0); Platelet Count (auto) 141 10^3/uL (140-450); Red Blood Cells 4.06 10^6/uL (4.5-5.90); Red Cell Distribution Width 17.9 % (11.8-14.3); White Blood Cell 5.7 10^3/uL (4.4-10.8)
[2020-03-10] MEDS: MORPHINE SULF INJ 2 MG/ML SYRINGE 1ML IV PRN ×3 (07:38→20:00)
[2020-03-10] MEDS: PROMETHAZINE HCL 25 MG/ML 1ML IV PRN ×3 (07:38→19:59)
[2020-03-10 07:47] LABS: Albumin 3.7 g/dL (3.4-5.0); Calcium 8.3 mg/dL (8.5-10.1)
[2020-03-10 07:51] LABS: BUN/Creatinine Ratio 8.2; Bilirubin, Total 1.1 mg/dL (0.2-1.0); Total Protein 7.7 g/dL (6.4-8.2)
[2020-03-10] MEDS ORDERED: SODIUM CHL 0.9% 1000 ML BAG XX ONE (08:00)
--- NOTE | 2020-03-10 08:30 | NUR ---
Patient stated he had a stress test done last month, refused a procedure. Will notify .
[2020-03-10 09:00] VITALS: BP 150/73
[2020-03-10] MEDS: SACUBITRIL-VALSARTAN 24mg/26mg TAB PO SCH ×2 (09:11→22:00)
[2020-03-10] MEDS ORDERED: DOBUTamine 1000MCG/ML 100 ML IV ONE (09:15)
[2020-03-10] MEDS: cefTRIAXone 1GM/50ML D5W 50 ML IV SCH (09:27)
[2020-03-10] MEDS: PANTOPRAZOLE 40 MG/10 ML VIAL INJ IV SCH (09:28)
[2020-03-10] MEDS: ASPirin 81 mg TAB PO SCH (09:28)
[2020-03-10] MEDS ORDERED: LEVOTHYROXINE SODIUM 50 MCG TAB PO ONE (11:30)
--- NOTE | 2020-03-10 11:31 | NUR ---
1130 03/10/20 I called [facility] and spoke with Joselin [phone] made her aware that patient would be having a dobutamine echo today (I spoke with Dr. Leiva regarding the plan of care) and that I would call her after procedure is completed.
[2020-03-10 12:52] VITALS: BP 137/70
[2020-03-10 13:00] VITALS: BP 137/73
[2020-03-10] MEDS ORDERED: LORazepam 2MG/ML-1ML VIAL ONE (13:09)
[2020-03-10] MEDS ORDERED: LORazepam 2MG/ML-1ML VIAL IV ONE (13:15)
[2020-03-10 17:00] VITALS: BP 147/92
--- NOTE | 2020-03-10 17:06 | NUR ---
HD DONE, FLUID REMOVED 2.5 L.
[2020-03-10 21:58] VITALS: BP 146/87
[2020-03-10] MEDS: diazePAM 2 MG TAB PO SCH (22:00)
[2020-03-11] MEDS: ACCU-CHEK COMFORT CURVE STRIP VI SCH ×4 (00:09→18:00)
[2020-03-11] MEDS: PROMETHAZINE HCL 25 MG/ML 1ML IV PRN ×2 (00:21→06:55)
[2020-03-11] MEDS: MORPHINE SULF INJ 2 MG/ML SYRINGE 1ML IV PRN ×3 (00:21→11:51)
[2020-03-11 05:02] VITALS: BP 129/88
[2020-03-11 05:30] VITALS: BP 127/83
[2020-03-11] MEDS: metroNIDAZOLE 500MG/100ML 100 ML IV SCH ×2 (06:00→15:23)
[2020-03-11] MEDS: FUROSEMIDE 20 MG/2 ML VIAL IV SCH ×2 (06:00→18:00)
[2020-03-11] MEDS: InsuLIN REG 1unit/0.01ml Soln (100units/ml) SC SCH ×4 (06:00→18:00)
[2020-03-11] MEDS ORDERED: LEVOTHYROXINE SODIUM 50 MCG TAB PO SCH (07:00)
--- NOTE | 2020-03-11 07:00 | NUR ---
OPENING SHIFT NOTE RECEIVED REPORT ON THE PATIENT. AWAKE SITTING UP IN BED HAVING BREAKFAST. PATIENT SHOWS NO SIGNS OF DISTRESS AT THIS TIME. DISCUSSED THE PLAN OF CARE WITH THE PATIENT. BED IN LOWEST POSITION, SIDE RAILS UP X2, AND THE CALL LIGHT IS WITHIN REACH.
[2020-03-11 08:36] VITALS: BP 141/90
[2020-03-11] MEDS: PANTOPRAZOLE 40 MG/10 ML VIAL INJ IV SCH (09:27)
[2020-03-11] MEDS: cefTRIAXone 1GM/50ML D5W 50 ML IV SCH (09:27)
[2020-03-11] MEDS: SACUBITRIL-VALSARTAN 24mg/26mg TAB PO SCH (09:28)
[2020-03-11] MEDS: ASPirin 81 mg TAB PO SCH (09:28)
[2020-03-11] MEDS ORDERED: DOCUSATE SOD 100 MG CAP PO ONE (11:15)
--- NOTE | 2020-03-11 11:29 | NUR ---
CALLED AND LEFT A MESSAGE FOR DR PETERSON TO FIND OUT IF THE PATIENT WILL HAVE DIALYSIS TODAY.
[2020-03-11 13:00] VITALS: BP 112/74
--- NOTE | 2020-03-11 13:01 | NUR ---
SPOKE TO WILMER. PATIENT WILL NOT BE DIALYZED TODAY BECAUSE HE WAS DIALYZED YESTERDAY AND THE PATIENT SHOULD RESUME HIS NORMAL DIALYSIS SCHEDULE.
[2020-03-11 13:37] VITALS: BP 112/74
--- NOTE | 2020-03-11 14:50 | NUR ---
TRANSPORT SET UP FOR MISCELLANEOUS MACHINE OPERATOR AT 1700 WITH [employer] . CONFIRMATION CODE IS [id number].
--- NOTE | 2020-03-11 17:51 | NUR ---
WAITING FOR [facility]. PHOTOGRAMMETRIC ENGINEER TIME WAS 1700, BUT THEY ARE LATE. CALLED [facility] FOR A FOLLOW UP. WILL CALL BACK WITH ULISES MEHTA
--- NOTE | 2020-03-11 18:25 | NUR ---
NEVER RECEIVED A CALL BACK FROM [facility]. CALLED AGAIN. ETA IS 20 MINUTES.
--- NOTE | 2020-03-11 18:52 | NUR ---
Discharge instructions given as ordered. Encourage to follow up with PMD as instructed. All questions and concerns addressed. Patient verbalized understanding. Medication reconciliation form completed and copy given to patient. Home medications held in Pharmacy returned to patient, and needed vaccines given. IV removed with catheter intact, pressure dressing applied. Telemetry unit returned to ICU. Patient taken to vehicle via wheelchair with all personal belongings, accompanied by staff and family member. No distress noted at time of departure.
== END 2020-03-11 18:50 | disposition home or self-care (01) | DRG 444 ==
LOC: EDUNIT# 13:18 → ER 13:18 → EDBD 13:18 → TELE 13:19 → TELE-CENTR 03-09 03:10
PROVIDERS: ADMIT Nurse Practitioner; ATTEND Internal Medicine
PROC: 5A1D70Z Performance of Urinary Filtration, Intermittent, Less than 6 Hours Per Day (ICD-10-PCS; principal; 2020-03-10)
DX: K80.00 Calculus of gallbladder with acute cholecystitis without obstruction (principal); N18.6 End stage renal disease; I21.A1 Myocardial infarction type 2; I50.23 Acute on chronic systolic (congestive) heart failure; I13.2 Hypertensive heart and chronic kidney disease with heart failure and with stage 5 chronic kidney disease, or end stage renal disease; I42.9 Cardiomyopathy, unspecified; E11.22 Type 2 diabetes mellitus with diabetic chronic kidney disease; E03.9 Hypothyroidism, unspecified; M10.9 Gout, unspecified; E87.5 Hyperkalemia; D63.8 Anemia in other chronic diseases classified elsewhere; E66.9 Obesity, unspecified; E78.5 Hyperlipidemia, unspecified; F41.9 Anxiety disorder, unspecified; I08.0 Rheumatic disorders of both mitral and aortic valves; I25.10 Atherosclerotic heart disease of native coronary artery without angina pectoris; J44.9 Chronic obstructive pulmonary disease, unspecified; Z96.642 Presence of left artificial hip joint; F32.9 Major depressive disorder, single episode, unspecified; K21.9 Gastro-esophageal reflux disease without esophagitis; R00.1 Bradycardia, unspecified; I25.2 Old myocardial infarction; Z80.51 Family history of malignant neoplasm of kidney; Z82.49 Family history of ischemic heart disease and other diseases of the circulatory system; Z99.2 Dependence on renal dialysis; Z83.3 Family history of diabetes mellitus; Z87.11 Personal history of peptic ulcer disease; Z95.5 Presence of coronary angioplasty implant and graft; Z88.8 Allergy status to other drugs, medicaments and biological substances
CPT/HCPCS: 36415; 71045; 74176; 76705; 78226; 80053; 81001; 82150; 82962; 83605; 83690; 83880; 84443; 84484; 85025; 85610; 85730; 86850; 86900; 86901; 87040; 87081; 90935; 93005; 93017; 93306; 93350; C9113; G0378; J0696; J1815; J3490